=== PATIENT | female | born 1935 | race Caucasian/White ===

== ENCOUNTER → 2023-09-05 13:12 | Outpatient (REF) | payer MEDICARE, BC, SELFPAY | LOC: RAD 13:12 | PROVIDERS: ATTENDING PHYSICIAN Nurse Practitioner Adult Health; FAMILY PHYSICIAN Internal Medicine Geriatric Medicine | DX: K94.23 Gastrostomy malfunction (principal) | CPT/HCPCS: 49465 ==

== ENCOUNTER 2023-11-26 12:24 | Emergency (ER) | payer MEDICARE, BC, SELFPAY ==
[2023-11-26 12:25] VITALS: BP 161/86
[2023-11-26 14:00] VITALS: BP 140/68
--- NOTE | 2023-11-26 14:36 | ED.GENMED ---
History of Present Illness
General
Chief Complaint: Catheter/Tube Problem
Source: patient and spouse
Exam Limitations: none
Time Seen by Provider: 11/26/23 13:58
Nursing documentation reviewed up to this point in time: agreed with
History of Present Illness
History of Present Illness:
88-year-old female past medical history of previous stroke currently with PEG tube in place to the right upper quadrant presenting to the emergency department after PEG tube got dislodged earlier today.
Past History
Past History
ED Past Medical History: CVA and HTN
ED Past Surgical History: Other (G-tube)
Social History
Tobacco: Non-smoker
Alcohol: None
Drug: None
Personal:
Living: with family
Employment: Retired
Review of Systems
Review of Systems
Allergies reviewed?: Yes
All Other Systems: ROS reviewed and negative except as documented in HPI and ROS
Phy Exam
Physical Exam
Physical Exam:
GENERAL: Alert , in no apparent distress
EYE: pupils equal and reactive
NECK: Supple, no significant adenopathy.
ENT: o/p clr, mmm.
CARDIAC: Regular rate and rhythm .
LUNGS: Clear breath sounds bilaterally, no acute respiratory distress, no wheezes/rales/rhonchi
ABDOMEN: Stoma right upper quadrant tenderness no redness or warmth soft, without focal tenderness, no r/g, no cvat
NEUROLOGICAL: Alert no focal neuro deficits
SKIN: Warm and dry, skin intact.
MUSCULOSKELETAL: No edema, well perfused.
PSYCH: Normal and appropriate interaction.
Course
Orders/Labs/Results
Orders:
Orders
11/26/23 14:30
Tube Check [CR Cont Inj Eval Tube(by Rad)] Urgent
Comment:
Reason For Exam: gtube ruq
Vital Signs
Initial and Last Documented VS:
Initial Vital Signs
Temp Pulse Resp BP Pulse Ox
97.9 F 86 18 161/86 97
11/26/23 12:25 11/26/23 12:25 11/26/23 12:25 11/26/23 12:25 11/26/23 12:25
Last Documented Vital Signs
Temp Pulse Resp BP Pulse Ox
97.9 F 66 18 140/68 99
11/26/23 12:25 11/26/23 14:00 11/26/23 14:00 11/26/23 14:00 11/26/23 14:00
Procedures
Other
Indication for procedure:: Gtube dislodged
Procedure completed by: Myself
Consent form signed: No
If no, reason: Emergency procedure
Additional Procedure:
G-tube dislodged replaced with 20 [place] G-tube.
MDM/Problems Addressed
MDM/Problems Addressed:
88-year-old female presenting to the emergency department today with concerns of PEG tube dislodgment earlier today. Has had PEG tube for many years. This was replaced here without incident Gastrografin study confirming placement. Stable for
discharge.
*Critical Care Note
Total Time (30-74mins, 75-104mins- exclusive of procedures): Not Applicable
ED Attending Note
-
Portions of this chart may have been created with voice recognition software.� Occasional wrong word or��sound alike� substitutions may have occurred due to the inherent limitations of voice recognition software.
Discharge Plan
Departure
Patient Disposition: Home (Routine Discharge)
Date of Disposition: 11/26/23
Time of Disposition: 15:10
Patient with high blood pressure during this ER visit?: No
Condition: Good
Covid-19: Not Applicable
Discharge Problem:
Gastrostomy tube dysfunction
Instructions: How to Care for Your Gastrostomy Tube
Prescriptions:
No Action
fexofenadine 180 mg Tablet
180 mg feeding tube DAILY@1200
spironolactone 25 mg Tablet
12.5 mg feeding tube DAILY
aspirin 81 mg Tablet,Chewable
81 mg feeding tube DAILY
clotrimazole 1 % Cream
1 applic TOPICAL PRN PRN (Reason: around tube for rash)
lansoprazole 30 mg tablet,disintegrat, delay rel
30 mg feeding tube BID
Banatrol Plus Powder In Packet
1 ea PO DAILY@1500
Systane (PF) 0.4-0.3 % Dropperette
1 drp BOTH EYES 5/D
olopatadine 0.2 % Drops
1 drp BOTH EYES DAILY
Flonase Sensimist 27.5 mcg/actuation [place],Suspension
1 spray INTRANASAL HS
menthol-zinc oxide [Calmoseptine] 0.44-20.6 % Ointment
1 applic TOPICAL PRN
Eliquis 5 mg Tablet
5 mg feeding tube BID
Melatonin Liquid
20 ml feeding tube HSPRN PRN (Reason: sleep)
acetaminophen 650 mg/20.3 mL Solution
650 mg feeding tube Q4HPRN PRN (Reason: pain/fever) Qty: 0 0RF
miconazole nitrate [Miconazorb AF] 2 % Powder
1 applic topical BID Qty: 85 0RF
Polysporin 500-10,000 unit/gram ointment in packet
1 applic topical DAILY
docusate sodium [Docu] 50 mg/5 mL Liquid
100 mg feeding tube BID PRN (Reason: constipation) 30 Days Qty: 600 0RF
ibuprofen 100 mg/5 mL Suspension
400 mg feeding tube Q4HPRN PRN (Reason: moderate pain) 5 Days Qty: 473 0RF
Referrals:
Judith Garcia MD [Family Provider] -
Activity Restrictions/Additional Instructions:
You can to the emergency department today with concerns of your G-tube falling out. This was replaced please follow-up closely with GI. Return to the emergency department for any worsening, new or concerning symptoms.
Interventions
Interventions:
*Risk Screen - Suicide Last Done: 11/26/23 12:25
*General Assessment Last Done: 11/26/23 12:25
*Neglect/Abuse Screening Last Done: 11/26/23 12:25
*ED COVID-19 Vaccine History Last Done: 11/26/23 12:25
VG-Offbgl-Uvcwxcjnta Assessment Last Done: 11/26/23 13:49
ED-Female Genitourinary Assessment Last Done: 11/26/23 13:49
Discharge Date and Time
Print Language: GEORGIAN
[2023-11-26 15:18] VITALS: BP 135/71
== END 2023-11-26 15:20 | disposition home or self-care (01) ==
LOC: EMR 12:24
PROVIDERS: EMERGENCY PHYSICIAN Emergency Medicine; FAMILY PHYSICIAN Internal Medicine Geriatric Medicine
DX: T85.528A Displacement of other gastrointestinal prosthetic devices, implants and grafts, initial encounter (principal); Y83.8 Other surgical procedures as the cause of abnormal reaction of the patient, or of later complication, without mention of misadventure at the time of the procedure; I10 Essential (primary) hypertension; Z86.73 Personal history of transient ischemic attack (TIA), and cerebral infarction without residual deficits; Z79.01 Long term (current) use of anticoagulants; Z88.8 Allergy status to other drugs, medicaments and biological substances
CPT/HCPCS: 99283; 43762; 49465

== ENCOUNTER → 2023-11-28 09:14 | Outpatient (REF) | payer MEDICARE, BC, SELFPAY | LOC: RST 09:14 | PROVIDERS: ATTENDING PHYSICIAN Internal Medicine Geriatric Medicine | DX: I69.322 Dysarthria following cerebral infarction (principal); R13.10 Dysphagia, unspecified | CPT/HCPCS: 74230; 92611 ==

== ENCOUNTER 2024-02-01 05:04 | Emergency (ER) | payer MEDICARE, BC, SELFPAY ==
[2024-02-01 05:46] VITALS: BP 154/94
[2024-02-01 07:34] VITALS: BP 147/84
[2024-02-01 08:00] VITALS: BP 151/75
[2024-02-01 09:00] VITALS: BP 135/86
--- NOTE | 2024-02-01 10:09 | ED.GENMED ---
History of Present Illness
General
Chief Complaint: Catheter/Tube Problem
Source: patient
Exam Limitations: none
Time Seen by Provider: 02/01/24 07:24
Nursing documentation reviewed up to this point in time: agreed with
History of Present Illness
History of Present Illness:
88-year-old female with past medical history of hypertension hyperlipidemia, stroke presenting to the emergency department today with concerns of dislodgment of her feeding tube that was replaced 2 months ago. Noticed this this morning. Denies any
pain or additional concerns.
Past History
Past History
ED Past Medical History: CVA and HTN
ED Past Surgical History: Other (G-tube)
Social History
Tobacco: Non-smoker
Alcohol: None
Drug: None
Personal:
Living: with family
Employment: Retired
Review of Systems
Review of Systems
Allergies reviewed?: Yes
All Other Systems: ROS reviewed and negative except as documented in HPI and ROS
Phy Exam
Physical Exam
Physical Exam:
GENERAL: Alert , in no apparent distress
EYE: pupils equal and reactive
NECK: Supple, no significant adenopathy.
ENT: o/p clr, mmm.
CARDIAC: Regular rate and rhythm .
LUNGS: Clear breath sounds bilaterally, no acute respiratory distress, no wheezes/rales/rhonchi
ABDOMEN: PEG tube to the mid abdomen partially dislodged no pain no redness or warmth abdomen otherwise soft, without focal tenderness, no r/g, no cvat
NEUROLOGICAL: Alert and oriented, no focal neuro deficits
SKIN: Warm and dry, skin intact.
MUSCULOSKELETAL: No edema, well perfused.
PSYCH: Normal and appropriate interaction.
Course
Orders/Labs/Results
Orders:
Orders
02/01/24 08:52
Tube Check [CR Cont Inj Eval Tube(by Rad)] Urgent
Comment:
Reason For Exam: G tube replaced
Vital Signs
Initial and Last Documented VS:
Initial Vital Signs
Temp Pulse Resp BP Pulse Ox
97.9 F 76 20 154/94 98
02/01/24 05:46 02/01/24 05:46 02/01/24 05:46 02/01/24 05:46 02/01/24 05:46
Last Documented Vital Signs
Temp Pulse Resp BP Pulse Ox
97.9 F 84 16 135/86 98
02/01/24 05:46 02/01/24 07:34 02/01/24 07:34 02/01/24 09:00 02/01/24 09:30
Procedures
Other
Indication for procedure:: G-tube dislodged
Procedure completed by: Myself
Consent form signed: No
If no, reason: Emergency procedure
Additional Procedure:
G-tube placed balloon filled with 15 cc of saline check with Gastrografin study
MDM/Problems Addressed
MDM/Problems Addressed:
88-year-old female presenting to the emergency department with concerns of G-tube falling out this morning. Brought in by the . Otherwise patient appears well no redness or warmth surrounding the area patent and well-established site. New
tube was placed confirmed with Gastrografin otherwise stable for discharge. Of note additionally patient and her were requesting that I discussed this with gastroenterology to see if she needs a different type of tube. This was discussed
with the attending physician with GI who recommended the standard tube to be replaced.
*Critical Care Note
Total Time (30-74mins, 75-104mins- exclusive of procedures): Not Applicable
ED Attending Note
-
Portions of this chart may have been created with voice recognition software.� Occasional wrong word or��sound alike� substitutions may have occurred due to the inherent limitations of voice recognition software.
Discharge Plan
Departure
Patient Disposition: Home (Routine Discharge)
Date of Disposition: 02/01/24
Time of Disposition: 10:09
Patient with high blood pressure during this ER visit?: No
Condition: Good
Covid-19: Not Applicable
Discharge Problem:
Dislodged gastrostomy tube
Instructions: How to Care for Your Gastrostomy Tube
Prescriptions:
No Action
fexofenadine 180 mg Tablet
180 mg feeding tube DAILY@1200
spironolactone 25 mg Tablet
12.5 mg feeding tube DAILY
aspirin 81 mg Tablet,Chewable
81 mg feeding tube DAILY
clotrimazole 1 % Cream
1 applic TOPICAL PRN PRN (Reason: around tube for rash)
lansoprazole 30 mg tablet,disintegrat, delay rel
30 mg feeding tube BID
Banatrol Plus Powder In Packet
1 ea PO DAILY@1500
Systane (PF) 0.4-0.3 % Dropperette
1 drp BOTH EYES 5/D
olopatadine 0.2 % Drops
1 drp BOTH EYES DAILY
Flonase Sensimist 27.5 mcg/actuation [place],Suspension
1 spray INTRANASAL HS
menthol-zinc oxide [Calmoseptine] 0.44-20.6 % Ointment
1 applic TOPICAL PRN
Eliquis 5 mg Tablet
5 mg feeding tube BID
Melatonin Liquid
20 ml feeding tube HSPRN PRN (Reason: sleep)
acetaminophen 650 mg/20.3 mL Solution
650 mg feeding tube Q4HPRN PRN (Reason: pain/fever) Qty: 0 0RF
miconazole nitrate [Miconazorb AF] 2 % Powder
1 applic topical BID Qty: 85 0RF
Polysporin 500-10,000 unit/gram ointment in packet
1 applic topical DAILY
docusate sodium [Docu] 50 mg/5 mL Liquid
100 mg feeding tube BID PRN (Reason: constipation) 30 Days Qty: 600 0RF
ibuprofen 100 mg/5 mL Suspension
400 mg feeding tube Q4HPRN PRN (Reason: moderate pain) 5 Days Qty: 473 0RF
Referrals:
Judith Garcia MD [Family Provider] -
Activity Restrictions/Additional Instructions:
You came to the emergency department today with concerns of dislodged G-tube. This was replaced. Please follow closely with your experience specialist. Return to the emergency department for any worsening, new or concerning symptoms.
Interventions
Interventions:
*Risk Screen - Suicide Last Done: 02/01/24 05:46
*General Assessment Last Done: 02/01/24 05:46
*Neglect/Abuse Screening Last Done: 02/01/24 05:46
ED- Fall Risk Assessment Last Done: 02/01/24 05:46
*ED COVID-19 Vaccine History Last Done: 02/01/24 05:46
*Nursing Disposition Last Done: 02/01/24 10:05
IU-Cxluax-Fqbyrpqkzw Assessment Last Done: 02/01/24 07:34
Discharge Date and Time
Discharge Date/Time: 02/01/24 10:26
Print Language: TAJIK
== END 2024-02-01 10:26 | disposition home or self-care (01) ==
LOC: EMR 05:04
PROVIDERS: EMERGENCY PHYSICIAN Emergency Medicine; FAMILY PHYSICIAN Internal Medicine Geriatric Medicine
DX: Z43.1 Encounter for attention to gastrostomy (principal); I10 Essential (primary) hypertension; E78.00 Pure hypercholesterolemia, unspecified; Z86.73 Personal history of transient ischemic attack (TIA), and cerebral infarction without residual deficits
CPT/HCPCS: 99283; 43762; 49465

== ENCOUNTER → 2024-04-03 13:21 | Outpatient (REF) | payer MEDICARE, BC, SELFPAY | LOC: REG 13:21 | PROVIDERS: ATTENDING PHYSICIAN Nurse Practitioner Adult Health; FAMILY PHYSICIAN Internal Medicine Geriatric Medicine | DX: K94.23 Gastrostomy malfunction (principal) | CPT/HCPCS: 49465 ==

== ENCOUNTER 2024-05-19 08:52 | Emergency (ER) | payer MEDICARE, BC, SELFPAY ==
[2024-05-19 09:10] VITALS: BP 127/67
--- NOTE | 2024-05-19 09:14 | EDRN ---
Unable to get temp at triage, unable to get oral nor axillary.
[2024-05-19 10:18] VITALS: BMI 23.5
[2024-05-19 10:22] VITALS: BP 139/77
--- NOTE | 2024-05-19 10:56 | ED.GENMED ---
History of Present Illness
General
Chief Complaint: Catheter/Tube Problem
Source: patient and spouse
Exam Limitations: none
Time Seen by Provider: 05/19/24 10:19
Nursing documentation reviewed up to this point in time: agreed with
History of Present Illness
History of Present Illness:
88-year-old female past medical history of previous stroke has a chronic G-tube and liver the past 6 years also with previous partial lap gastrectomy. Presenting today with concerns of leaking from her G-tube. Has had difficulty with the G-tube
over the past month with a new type of tube being used. They are requesting replacement with her standard tube that she has gotten here multiple times in the past. Denies additional concerns.
Past History
Past History
ED Past Medical History: CVA and HTN
ED Past Surgical History: Other (G-tube)
Social History
Tobacco: Non-smoker
Alcohol: None
Drug: None
Personal:
Living: with family
Employment: Retired
Review of Systems
Review of Systems
Allergies reviewed?: Yes
All Other Systems: ROS reviewed and negative except as documented in HPI and ROS
Phy Exam
Physical Exam
Physical Exam:
GENERAL: Alert , in no apparent distress
EYE: pupils equal and reactive
NECK: Supple, no significant adenopathy.
ENT: o/p clr, mmm.
CARDIAC: Regular rate and rhythm .
LUNGS: Clear breath sounds bilaterally, no acute respiratory distress, no wheezes/rales/rhonchi
ABDOMEN: No visible abnormalities to the surrounding skin. G-tube in place to the epigastrium. Soft, without focal tenderness, no r/g, no cvat
NEUROLOGICAL: Alert and oriented, no focal neuro deficits
SKIN: Warm and dry, skin intact.
MUSCULOSKELETAL: No edema, well perfused.
PSYCH: Normal and appropriate interaction.
Course
Orders/Labs/Results
Orders:
Orders
05/19/24 11:45
Tube Check [CR Cont Inj Eval Tube(by Rad)] Urgent
Comment:
Reason For Exam: Gtube
Vital Signs
Initial and Last Documented VS:
Initial Vital Signs
Pulse Resp BP Pulse Ox
92 16 127/67 97
05/19/24 09:10 05/19/24 09:10 05/19/24 09:10 05/19/24 09:10
Last Documented Vital Signs
Pulse Resp BP Pulse Ox
91 18 126/64 96
05/19/24 12:45 05/19/24 12:30 05/19/24 12:00 05/19/24 12:45
Procedures
Other
Indication for procedure:: G-tube malfunction
Procedure completed by: Myself
Consent form signed: No
If no, reason: Emergency procedure
Additional Procedure:
G-tube placed and confirmed with x-ray x-ray read by me
MDM/Problems Addressed
MDM/Problems Addressed:
88-year-old female presenting to the emergency department today with concerns of a leaking G-tube worsening over the past month or so since getting a new G-tube. Specifically worsening over the past few days. They are requesting a replacement here
today. This was replaced in the ER without incident. Confirmed with tube check x-ray. Stable for outpatient management return precautions given..
*Critical Care Note
Total Time (30-74mins, 75-104mins- exclusive of procedures): Not Applicable
ED Attending Note
-
Portions of this chart may have been created with voice recognition software.� Occasional wrong word or��sound alike� substitutions may have occurred due to the inherent limitations of voice recognition software.
Discharge Plan
Departure
Patient Disposition: Home (Routine Discharge)
Date of Disposition: 05/19/24
Time of Disposition: 13:14
Patient with high blood pressure during this ER visit?: No
Condition: Good
Covid-19: Not Applicable
Discharge Problem:
Leakage of gastrostomy site
Instructions: How to Care for Your Gastrostomy Tube
Prescriptions:
No Action
fexofenadine 180 mg Tablet
180 mg feeding tube DAILY@1200
spironolactone 25 mg Tablet
12.5 mg feeding tube DAILY
aspirin 81 mg Tablet,Chewable
81 mg feeding tube DAILY
clotrimazole 1 % Cream
1 applic TOPICAL PRN PRN (Reason: around tube for rash)
lansoprazole 30 mg tablet,disintegrat, delay rel
30 mg feeding tube BID
Banatrol Plus Powder In Packet
1 ea PO DAILY@1500
Systane (PF) 0.4-0.3 % Dropperette
1 drp BOTH EYES 5/D
olopatadine 0.2 % Drops
1 drp BOTH EYES DAILY
Flonase Sensimist 27.5 mcg/actuation [place],Suspension
1 spray INTRANASAL HS
menthol-zinc oxide [Calmoseptine] 0.44-20.6 % Ointment
1 applic TOPICAL PRN
Eliquis 5 mg Tablet
5 mg feeding tube BID
Melatonin Liquid
20 ml feeding tube HSPRN PRN (Reason: sleep)
acetaminophen 650 mg/20.3 mL Solution
650 mg feeding tube Q4HPRN PRN (Reason: pain/fever) Qty: 0 0RF
miconazole nitrate [Miconazorb AF] 2 % Powder
1 applic topical BID Qty: 85 0RF
Polysporin 500-10,000 unit/gram ointment in packet
1 applic topical DAILY
docusate sodium [Docu] 50 mg/5 mL Liquid
100 mg feeding tube BID PRN (Reason: constipation) 30 Days Qty: 600 0RF
ibuprofen 100 mg/5 mL Suspension
400 mg feeding tube Q4HPRN PRN (Reason: moderate pain) 5 Days Qty: 473 0RF
Referrals:
Judith Garcia MD [Family Provider] -
Activity Restrictions/Additional Instructions:
You came to the emergency department today with concerns of G-tube issue. This was replaced. Please follow closely with your GI doctor. Return for any worsening, new or concerning symptoms.
Interventions
Interventions:
*Risk Screen - Suicide Last Done: 05/19/24 10:11
*General Assessment Last Done: 05/19/24 10:11
*Neglect/Abuse Screening Last Done: 05/19/24 10:11
*ED COVID-19 Vaccine History Last Done: 05/19/24 10:11
PM-Chtqkw-Ruuhzuihkq Assessment Last Done: 05/19/24 10:11
ED-Female Genitourinary Assessment Last Done: 05/19/24 10:11
Discharge Date and Time
Print Language: HAITIAN
[2024-05-19 11:00] VITALS: BP 129/67
[2024-05-19 12:00] VITALS: BP 126/64
== END 2024-05-19 13:49 | disposition home or self-care (01) ==
LOC: EMR 08:52
PROVIDERS: EMERGENCY PHYSICIAN Student in an Organized Health Care Education/Training Program; FAMILY PHYSICIAN Internal Medicine Geriatric Medicine
DX: K94.23 Gastrostomy malfunction (principal); I10 Essential (primary) hypertension; Z86.73 Personal history of transient ischemic attack (TIA), and cerebral infarction without residual deficits; Z90.3 Acquired absence of stomach [part of]
CPT/HCPCS: 43762; 99283; 49465

== ENCOUNTER → 2024-12-10 13:28 | Outpatient (REF) | payer MEDICARE, BC, SELFPAY | LOC: RAD 13:28 | PROVIDERS: ATTENDING PHYSICIAN Nurse Practitioner Adult Health; FAMILY PHYSICIAN Internal Medicine Geriatric Medicine | DX: Z43.1 Encounter for attention to gastrostomy (principal) | CPT/HCPCS: 49465 ==

== ENCOUNTER 2024-12-24 15:48 | Inpatient (IN) | payer MEDICARE, BC, SELFPAY ==
[2024-12-24] VITALS (10 sets, daily range): BP systolic 97–115; BP diastolic 47–83; BMI 20.9; BMI 23.6
[2024-12-24 10:28] LABS: Hematocrit 39.0 % (37.0-47.0); Hemoglobin 12.6 g/dL (12.0-16.0); Mean Corp Hgb Conc. 32.3 g/dL (33.0-37.0); Mean Corpuscular Volume 96.5 fL (81.0-99.0); Nucleated Red Blood Cells % 0 %; Platelet Count 232 10^3/uL (130-400); Red Cell Dist. Width 14.4 % (11.5-14.5)
[2024-12-24 10:46] LABS: Blood Urea Nitrogen 25 mg/dl (7-17); Calcium 9.4 mg/dl (8.4-10.2); Carbon Dioxide 28 mmol/L (22-30); Chloride 105 mmol/L (98-107); Estimated Creatinine Clearance 47 ml/min; Glucose 98 mg/dl (70-99); Sodium 139 mmol/L (135-145); eGFR > 60.00
[2024-12-24] MEDS: NSS 1000 IV ×2 (10:57→19:17)
--- NOTE | 2024-12-24 13:31 | ED.GENMED ---
History of Present Illness
General
Chief Complaint: Fainting/Passed Out
Source: family
Time Seen by Provider: 12/24/24 11:29
History of Present Illness
History of Present Illness:
89-year-old female had her G-tube replaced a few weeks ago. Has had some drainage around it but this occurred with her previous G-tube. She has been constipated. Today she went to the bathroom and passed out briefly while on the toilet bearing
down. She is at baseline now neurologically. She denies chest pain shortness of breath or abdominal pain. She is always distended per the family.
Past History
Past History
ED Past Medical History: CVA and HTN
ED Past Surgical History: Other (G-tube)
Social History
Tobacco: Non-smoker
Alcohol: None
Drug: None
Personal:
Living: with family
Employment: Retired
Review of Systems
Review of Systems
All Other Systems: Not applicable
Constitutional: Denies fever or chills
Respiratory: Reports no symptoms
Cardiac: Reports no symptoms
Phy Exam
Physical Exam
Physical Exam:
GENERAL: Alert. Follows command. Nonverbal.
EYE: Orbits normal.
NECK: Supple
CARDIAC: Regular rate and rhythm without any obvious murmurs.
LUNGS: Clear breath sounds,normal
ABDOMEN: Distended. Bowel sounds present. G-tube in place. Clear to yellow drainage surrounding the G-tube with mild dermatitis. No tenderness.
NEUROLOGICAL: Alert
SKIN: Warm and dry, no rash or lesion, no discoloration, skin intact.
MUSCULOSKELETAL: No edema,no deformity.Good color
Course
Orders/Labs/Results
Orders:
Orders
12/24/24 10:08
EKG [Electrocardiogram (*1)] Urgent
Reason for Study: Vertigo / Dizzy
EKG- Treatment ONCE
12/24/24 10:14
Basic Metabolic Panel Urgent
Complete Blood Count/With Diff Urgent
Lipase Urgent
12/24/24 10:57
0.9% Sodium Chloride 1000 ml [Nss] 1,000 ml IV BOLUS
12/24/24 11:39
IV Insert/Care/Rem.- Treatment PRN
0.9% Sodium Chloride 500 ml [Nss] 500 ml IV BOLUS
12/24/24 11:42
CT Abd/Pel (IV only)-DH only Urgent
Comment:
Reason For Exam: Abdominal pain/recent G-tube change
12/24/24 11:43
Straight cath- Treatment ONCE
Iohexol [Omnipaque] See Protocol TUBE NOW STA
12/24/24 12:20
Add On- LAB Urgent
Tests Added?: lfts,lipase
12/24/24 12:38
Blood Culture Q30M
YESSY Source: Blood/Venous
Specimen Description:
12/24/24 13:21
Gpfhm-Aukc-Bazncju Routine
Comment: NEEDS TO BE COLLECTED ORIGINAL SPECIMEN HEMOLYZED
Urinalysis Reflex To Culture Urgent
Date Specimen was Collected: 12/24/24
Time Specimen was Collected: 12:23
Urine Microscopic Reflex Cult Urgent
Blood Culture Q30M
YESSY Source: Blood/Venous
Specimen Description:
12/24/24 13:38
Tube Check [CR Cont Inj Eval Tube(by Rad)] Urgent
Comment:
Reason For Exam: Drainage from G-tube
12/24/24 13:40
Piperacillin/Tazo 4.5 Gram [Zosyn] 4.5 gram in 100 ml IV NOW
Abnormal Lab Results
12/24/24 12/24/24
10:14 13:21
WBC 17.6 H 10^3/uL
(4.8-10.8)
RBC 4.04 L 10^6/uL
(4.20-5.40)
MCH 31.2 H pg
(27.0-31.0)
MCHC 32.3 L g/dL
(33.0-37.0)
MPV 12.0 H fL
(7.4-10.4)
Abs Immat Gran (auto) 0.1 H 10^3/uL
(0-0.05)
Absolute Neuts (auto) 13.8 H 10^3/uL
(1.4-6.5)
Absolute Monos (auto) 1.8 H 10^3/uL
(0.1-0.6)
Neutrophils % 78.7 H %
(42.2-75.2)
Lymphocytes % 9.4 L %
(20.5-51.1)
Monocytes % 10.4 H %
(1.7-9.3)
BUN 25 H mg/dl
(7-17)
Urine Ketones 1+ A
(Negative)
Urine Albumin (Reflex) 2+ A
(Neg - Trace)
12/24/24 10:14
12/24/24 10:14
Vital Signs
Initial and Last Documented VS:
Initial Vital Signs
BP
110/47
12/24/24 10:09
Last Documented Vital Signs
Temp Pulse Resp BP Pulse Ox
98.1 F 82 16 110/83 94
12/24/24 10:19 12/24/24 12:54 12/24/24 12:54 12/24/24 12:54 12/24/24 13:36
*Radiology
Radiology exam reviewed: radiology read reviewed (Feeding tube in place. Liquid stool in the colon. Consolidation right lower lobe)
*Pulse Oximetry
SaO2: 94
Oxygen Mode of Delivery: Room air
Patient hypoxic: no
*EKG
Interpreted by ED Provider?: Yes
Interpretation: normal
Comparison EKG: no changes
Heart Rate: 68
Rate: normal
Rhythm: sinus
[place]: left axis deviation
Interval: normal interval
QRS Pattern: normal QRS
Ischemia: no ischemia
*Mill Supervisor Interpretation
Rate: normal
Interpretation: normal
Heart Rate: 70
Rhythm: sinus
*Critical Care Note
Total Time (30-74mins, 75-104mins- exclusive of procedures): Not Applicable
Update Note
Update Note:
Patient with pneumonia. Leukocytosis, hypotension on arrival and syncopal episode. Warrants inpatient management. Will do a Gastrografin check for completeness
ED Attending Note
-
Portions of this chart may have been created with voice recognition software.� Occasional wrong word or��sound alike� substitutions may have occurred due to the inherent limitations of voice recognition software.
Discharge Plan
Departure
Patient Disposition: Admit
Date of Disposition: 12/24/24
Time of Disposition: 13:41
Presentation/result/management discussed w/ accepting MD/DO: Hospitalist
Discharge Problem:
Syncope, Right lower lobe infiltrate, Drainage from G-tube, Previous CVA
Prescriptions:
No Action
fexofenadine 180 mg Tablet
180 mg feeding tube DAILY@1200
aspirin 81 mg Tablet,Chewable
81 mg feeding tube DAILY
clotrimazole 1 % Cream
1 applic TOPICAL PRN PRN (Reason: around tube for rash)
lansoprazole 30 mg tablet,disintegrat, delay rel
30 mg feeding tube BID
Banatrol Plus Powder In Packet
1 ea PO DAILY@1500
Systane (PF) 0.4-0.3 % Dropperette
1 drp BOTH EYES 5/D
olopatadine 0.2 % Drops
1 drp BOTH EYES DAILY
Flonase Sensimist 27.5 mcg/actuation [place],Suspension
1 spray INTRANASAL HS
Eliquis 5 mg Tablet
5 mg feeding tube BID
Melatonin Liquid
20 ml feeding tube HSPRN PRN (Reason: sleep)
acetaminophen 650 mg/20.3 mL Solution
650 mg feeding tube Q4HPRN PRN (Reason: pain/fever) Qty: 0 0RF
docusate sodium [Docu] 50 mg/5 mL Liquid
100 mg feeding tube BID PRN (Reason: constipation) 30 Days Qty: 600 0RF
ibuprofen 100 mg/5 mL Suspension
400 mg feeding tube Q4HPRN PRN (Reason: moderate pain) 5 Days Qty: 473 0RF
glycerin (adult) Suppository
1 supp [place] DAILY PRN (Reason: constipation)
mometasone 0.1 % Solution
1 applic TOPICAL DAILY
Referrals:
Carlos Shields DO [Family Provider, Family Practice]
Interventions
Interventions:
*Risk Screen - Suicide Last Done: 12/24/24 10:19
*General Assessment Last Done: 12/24/24 10:19
*Neglect/Abuse Screening Last Done: 12/24/24 10:19
*ED- Fall Risk Assessment Last Done: 12/24/24 10:19
*ED COVID-19 Vaccine History Last Done: 12/24/24 10:19
ED- Cardiac Assessment Last Done: 12/24/24 10:19
ED- Neurological Assessment Last Done: 12/24/24 10:19
Discharge Date and Time
Print Language: GERMAN
[2024-12-24 13:42] LABS: Urine Character Clear (Clear)
[2024-12-24 13:48] LABS: ALT (SGPT) 29 U/L (0-35); AST (SGOT) 39 U/L (14-36); Albumin 3.4 g/dl (3.5-5.0); Alkaline Phosphatase 73 U/L (38-126); Total Protein 6.4 g/dl (6.3-8.2)
--- NOTE | 2024-12-24 13:52 | HPS.HSE ---
Family Physician
-
Family Physician: Carlos Shields, DO
Chief Complaint
-
Syncope with bowel movement, vomited yellow bile, G-tube malfunction
History of Present Illness
89-year-old female from home complaining of some drainage around her G-tube which was replaced 2 weeks ago. She reports feeling constipated and straining while in the bathroom for which she passed out briefly while on the toilet bearing down. Her
daughters at bedside adding inhaler he states she had her G-tube changed 2 weeks ago with balloon increased from 10 cc to 20 cc and attempt to decrease chronic diarrhea post tube feeds however since then she has had scant amount of her chronic pasty
stool passing giving her a sense of constipation. She also has external hemorrhoids for which external Preparation H has not been helping. Her daughter states today while she was straining on the toilet and passed out she refluxed yellow bile into
her mouth she is unable to swallow her own saliva at baseline since her stroke. CT of her abdomen shows no intestinal obstruction some liquid stool in the colon however shows consolidation in the right lower lobe reflecting possible pneumonia. The
patient and family at bedside deny fever, chills, chest pain, palpitations, cough, nausea, diarrhea, urinary symptoms.
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
bilateral leg lymphedema, chronic ambulatory dysfunction uses walker at baseline past 6 months
Medical History
Past Medical History
Past Medical History: Reports Other
Additional Past Medical History:
CVA 2019 status post thrombectomy with dysphagia/dysarthria requiring PEG tube- chronic drooling left side of mouth
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
HTN
chronic bilateral leg lymphedema
chronic ambulatory dysfunction uses walker at baseline past 6 months
Past Surgical History: Reports Other
Additional Past Surgical History:
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
G-tube placement recent exchange November 2024
Initial G-tube 2019 replacement 2021
Bladder lift with ovarian removal
Social History
Tobacco: Non-smoker
Alcohol: None
Drug: None
Personal:
Living: Alone ([facility])
Employment: Retired
Family History
Family History: Not pertinent
Allergies / Home Medications
Allergies reflects when Allergies were last updated in [facility].
Home Medications with original date entered in [facility]
Allergy/Medication List:
Allergies
Allergy/AdvReac Type Severity Reaction Status Date / Time
atorvastatin (From Lipitor) Allergy diarrhea Verified 05/19/24 09:10
budesonide (From Symbicort) Allergy hoarse Verified 05/19/24 09:10
voice
formoterol (From Symbicort) Allergy hoarse Verified 05/19/24 09:10
voice
lisinopril Allergy COUGH Verified 05/19/24 09:10
losartan Allergy rapid HR Verified 05/19/24 09:10
rofecoxib (From Vioxx) Allergy Swelling Verified 05/19/24 09:10
rosuvastatin (From Crestor) Allergy DIARRHEA Verified 05/19/24 09:10
Home Medications
apixaban 5 mg tablet (Eliquis) 5 mg feeding tube BID Blood clot prevention/tx 03/31/22
aspirin 81 mg chewable tablet 81 mg feeding tube DAILY Blood clot prevention/tx 03/31/22
lansoprazole 15 mg delayed release,disintegrating tablet 15 mg feeding tube DAILY 12/24/24
Review of Systems
-
History Source: Patient and Family (Daughters Lynne and Jenny)
A 12 point ROS was completed and negative except as noted: Yes
Constitutional: Reports Other (Baseline nonverbal from stroke however does communicate via phone texting); Denies Fever or Fatigue
EENT: Reports Other (Chronic show left-sided mouth due to chronic dysphagia from CVA); Denies Sore Throat or Runny Nose
Respiratory: Denies Cough or Trouble Breathing
Cardiac: Denies Chest Pain, Diaphoresis, Palpitations or Syncope
Abdomen/GI: Reports Nausea (Chronic), Constipated and Other (Vomited yellow bile post vasovagal episode); Denies Abdominal Pain
: Denies Dysuria, Frequency, Flank Pain, Incontinence or Difficulty Voiding
Musculoskeletal: Reports Edema (Chronic bilateral leg lymphedema +1 nonpitting); Denies Joint Pain
Skin: Denies Itching or Rash
Neurological: Denies Dizzy, Headache or Weakness
Endocrine: Reports No Symptoms
Hematologic/Lymphatic: Reports No Symptoms
Psych: Reports Calm
Physical Exam
Vital Signs
Vital Signs
Temp Pulse Resp BP Pulse Ox
98.1 F 82 16 110/83 94
12/24/24 10:19 12/24/24 12:54 12/24/24 12:54 12/24/24 12:54 12/24/24 13:36
Physical Exam
General: Comfortable and Conversant
HEENT: NormoCephalic, Anicteric, Moist mucous membranes, PERRLA, [place] Conjunctivae and Other (Baseline nonverbal from stroke however does communicate via phone texting, chronic drool from left side mouth due to chronic dysphagia from prior stroke)
Respiratory: Clear; No Wheezes, Rales or Rhonchi
Cardiac: S1/S2 and Regular Rhythm; No Murmur, Rub or Gallop
Breast: Deferred by me
GI: Soft, Non Tender, Non Distended, Normal Bowel Sounds, Distended (Chronic) and Peg Tube (With chronic excoriation around site due to scant leakage)
Rectal: Hemorrhoids
Genito-urinary: Deferred by me
Musculoskeletal: No Clubbing, No Cyanosis, Edema, Left Lower Extremity (Chronic leg lymphedema +1 nonpitting) and Edema, Right Lower Extremity (Chronic leg lymphedema +1 nonpitting); No Edema, Left Upper Extremity or Edema, Right Upper Extremity
Skin: Warm and Dry; No Rash
Neuro: AO x 3 (Communicates via iPhone), No Motor Deficits, No Sensory Deficits and Other (Chronic left-sided facial droop with drooling, chronic nonverbal due to prior stroke); No Tremors or Sedated
Psych: Calm
Laboratory Results
-
12/24/24 10:14
12/24/24 10:14
Laboratory Results
Total Bilirubin 0.8 mg/dl (0.2-1.3) 12/24/24 13:21
AST 39 U/L (14-36) H 12/24/24 13:21
ALT 29 U/L (0-35) 12/24/24 13:21
Alkaline Phosphatase 73 U/L (38-126) 12/24/24 13:21
Impression/Plan
-
Impression/plan:
Admit to MED SURG
#Right lower lobe pneumonia consider aspiration given G-tube feeds poss g tube malfunction
#Vomited yellow bile post syncope
WBC 17.6 with left shift, afebrile 98.1 F, 110/83,
91�94% RA monitor pulse oximetry
- Follow blood cultures, urinalysis, CBC, CMP
-IV Zosyn
- Check Pro-Jamshid if negative will stop antibiotics
CT abdomen pelvis:
1.Percutaneous feeding tube tip most likely in the duodenum. No gross free fluid or free air.
2. Some liquid stool in the colon. Cannot exclude enteritis. No intestinal obstruction.
3. Although markedly limited by beam hardening artifact, suggested consolidation in the
lower lobe of the right lung such as pneumonia, less likely mass.
#Vasovagal syncope attempted to have bowel movement
Patient reports feeling constipated however no constipation or obstruction on CT
follow orthostatics
#Possible G-tube malfunction/malplacement/ chronic leakage around G-tube site
#Replacement of G-tube 2 weeks ago November 2024 into duodenum
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
-Percutaneous feeding tube placement is in the duodenum per CT
-lansoprazole 30 mg twice daily via G-tube
- Continue banana troll plus daily at 1500 supplement via G-tube
- IV Protonix 40 mg daily
-- Consult GI
-NPO
-IV NSS 40 cc/hr
- Check G-tube placement
- Once G-tube placement confirmed will need consult for tube feeds uses Nutren 2.0 prior bolus 120 mL every 2-3 hours with 60 cc pre and post feeds then 120 cc water with meds 3 times daily
#External hemorrhoids with pain
- Will apply Anusol suppository for relief
#Embolic CVA 2019 s/p thrombectomy with dysphagia/dysarthria
-May continue Eliquis 5 mg twice daily via G-tube ONCE placement confirmed
- MAY Continue aspirin 81 mg daily via G-tube ONCE placement confirmed
#Insomnia
May have melatonin liquid from home 20 mL at bedtime as needed
#Dry eye syndrome
Continue eyedrops
Seasonal allergies
Fexofenadine 180 mg 180 mg daily via G-tube at noon
DVT prophylaxis
SCD' s until placement og gtube confirmed then can resume eliquis
DNR per patient with daughter Jeaneth at bedside
[2024-12-24] MEDS: ZOSYN 100 IV (13:56)
[2024-12-24 14:00] LABS: Urine Squamous Cell 0-2 /LPF (Few)
[2024-12-24 14:01] LABS: Urine Red Blood Cell 0-2 /HPF (0-2); Urine White Cell 0-2 /HPF (0-5)
--- NOTE | 2024-12-24 14:01 | W.PN.UPDATE ---
Update Note
Progress Note Update
This note serves as an addendum to the H&P by driver license agent Thea Gates
HPI
89F with chronic PEG for dysphagia/dysarthria s/p embolic CVA in 2019 seen at ER:
- c/o drainage around her G-tube which was replaced a few weeks ago.
- feeling constipated and straining while in the bathroom for which she passed out briefly while on the toilet bearing down.
- Per family she is at baseline now neurologically.
- has chronic distended abdomen.
AP CT of - no intestinal obstruction some liquid stool in the colon however shows consolidation in the right lower lobe reflecting possible pneumonia.
PMH
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
HTN
Relevant VS
Temp Pulse Resp BP Pulse Ox
98.1 F 82 16 110/83 94
12/24/24 10:19 12/24/24 12:54 12/24/24 12:54 12/24/24 12:54 12/24/24 13:36
PE
Gen:
HEENT:
Neck:
Lungs:
Cor:
Abdomen:�
SUPERVISOR STAVE CUTTING:
MS:
Psych:
Relevant data�
06/19/22 12/24/24 12/24/24
04:39 10:14 13:21
WBC 8.1 17.6 H
Hgb 12.1 12.6
Plt Count 186 232
Creatinine 0.7
eGFR > 60.00
Direct Bilirubin 0.6 H
AST 39 H
Albumin 3.[address] Abd/Pel (IV only)-DH only
- Percutaneous feeding tube tip most likely in the duodenum. No gross free fluid or free air.
- Some liquid stool in the colon. Cannot exclude enteritis. No intestinal obstruction.
- although markedly limited by beam hardening artifact, suggested consolidation in the lower lobe of the right lung such as pneumonia, less likely mass.
12/24/24 Pending Tube check : pending
12/10/24 CR Cont Inj Eval Tube(by Rad)
The percutaneous gastrostomy tube tip is confirmed within the gastric lumen.
Last hospitalist admission: Date of Admission: 03/31/22 - Date of Discharge: 04/11/22
PDX
PEG tube malfunction with leak.
HX CVA (stroke) in 2019 which led to the dysphagia and dysarthria
Essential hypertension.
ASSESSMENT & PLAN
Pending Rx reconciliation
Syncope while straining while defecation
- vasovagal orging
Malfunction PEG tube with leakage around the tract
- Per CT - PEG is in correct position
- Recently increased the ballon capacity ( 10 cc to 20 cc ) 2 weeks ago
- S/P PEG 04/10/22--Gastric fistula-s/p endoscopic repair 04/03
- Tube check for the function
- maintenance Gentle IV NS @40 /H while evaluating TF function
- GI consult
Incidental findings R LLL Consolidation - presumed aspiration
Spitting more since vomiting episodes
- Vomited yesterday
- Leucocytosis
- Afebrile
- check PCT - If NEG can stop ABx
- Empiric Zosyn
HX embolic CVA in 2019 with residauly dysphagia and dysarthria- at [facility].
- on chr Eliquis and ASA
Essential HTN
- Observe BP
DVT Px: IMMIGRATION OFFICER Eliquis
DNR
IP MS
--- NOTE | 2024-12-24 15:32 | CON.GI ---
Addendum entered and electronically signed by Hunter Pack MD 12/24/24 17:10:
The patient was seen and examined by me independently in collaboration with the nurse practitioner.
Past medical history/social history/medications/allergies/family history reviewed.
Lab data and imaging data reviewed.
89-year-old female past medical history of stroke with chronic dysphagia, dysarthria on chronic Eliquis with PEG c/b fistula, buried bumper, failed ovesco s/p partial gastrectomy p/w leakage, underwent CT which showed G tube in the duodenum which
likely led to aspiration PNA and constipation which led to vasovagal syncope while having BM. Briseida Atkins APN fixed PEG tube and G tube check.
Original Note:
Consultation
-
Date/Time Consultation Requested: 12/24/24 1500
Date/Time Consultation Performed: 12/24/24 1530
Requesting Provider: LUCIANO Keen
Performing Provider: LUCIANO Cohen, Vibha Pack MD
Reason for Consultation: peg leakage/ malposition
Medical History
Chief Complaint / HPI
History of Present Illness:
Pt is a 89yo with hx CVA with prior thrombectomy with chronic dysphagia, dysarthria on chronic Eliquis, GERD, HTN, hemorrhoids, pancreatic cyst, constipation/diarrhea , chronic peg with complicated peg issue [id number] with non healing fistula with
likely prior buried bumper, failed ovesco closure then partial gastrectomy for fistula track closure in 2022. She has done well since that time with routine checks, silver nitrate treatments, accidental removal with ER replacement and leakage. She
had routine change 2 weeks ago. Prior to change some bloating and tube was around 8 then 4-5 after replacement. Tube check confirmed placement in stomach on tube check . After placement she was noted with constipation with minimal stools and
taking Miralax. She noted noted 9/2 PM with migration of tube to back to around 10 with increased bloating, leakage then small amount of emesis. She also had episode of passing out of toilet while bearing down. On admission she was noted with
leukocytosis. CT on admission with concern for tube with tip in duodenum liquid stool in colon cannot exclude enteritis and concern for possible PNA. Asked to eval tube.
In review with patient and family noted tube changes as above. Skin around tube was she has hx diarrhea and constipation. She had been off miralax but restarted over last week. She has also had hx hemorrhoids with irritation with straining
for BM. She otherwise admits to chronic GERD and gas with incresae symptoms since yesterday. She denies diarrhea, or black stools.
Past Medical History
Past Medical History: CVA (CVA with prior thrombectomy with chronic dysphagia, dysarthria on chronic Eliquis ), GERD, HTN and Other (allergies, raynauds, hemorrhoids, pancreatic cyst, constipation/diarrhea )
Past Surgical History: Other (chronic peg with hx malpositioned peg and unhealing tract with ovesco clip then gastric fistula repair partial gastrectomy 2022)
Social History
Tobacco: Non-Smoker
Alcohol: None
Drug: None
Personal:
Living: With Family
Employment: Retired
Family History
Family History: Reviewed & Not Pertinent
Allergies / Home Medications
Allergy/AdvReac Type Severity Reaction Status Date / Time
atorvastatin (From Lipitor) Allergy diarrhea Verified 05/19/24 09:10
budesonide (From Symbicort) Allergy hoarse Verified 05/19/24 09:10
voice
formoterol (From Symbicort) Allergy hoarse Verified 05/19/24 09:10
voice
lisinopril Allergy COUGH Verified 05/19/24 09:10
losartan Allergy rapid HR Verified 05/19/24 09:10
rofecoxib (From Vioxx) Allergy Swelling Verified 05/19/24 09:10
rosuvastatin (From Crestor) Allergy DIARRHEA Verified 05/19/24 09:10
�Medication �Instructions �Recorded
apixaban 5 mg tablet (Eliquis) 5 mg feeding tube BID Blood clot 03/31/22
prevention/tx
aspirin 81 mg chewable tablet 81 mg feeding tube DAILY Blood 03/31/22
clot prevention/tx
lansoprazole 15 mg delayed 15 mg feeding tube DAILY 12/24/24
release,disintegrating tablet
Review of Systems
-
History Source: Patient and Family
Constitutional: Reports Weight Loss (some loss with loss of spouse ) and Fatigue
EENT: Reports No Symptoms
Respiratory: Reports No Symptoms
Cardiac: Reports Syncope
Abdomen/GI: Reports Nausea, Vomiting, Constipated and Other (increased GERD and increased leakage around tube )
: Reports No Symptoms
Neurological: Reports Weakness
Endocrine: Reports No Symptoms
Hematologic/Lymphatic: Reports Bleeding (with hemorrhoids at times )
Vital Signs
Temp Pulse Resp BP Pulse Ox
98.1 F 82 16 110/83 94
12/24/24 10:19 12/24/24 12:54 12/24/24 12:54 12/24/24 12:54 12/24/24 13:36
Physical Exam
Exam
General: Other (sleepy but arousable )
HEENT: Normocephalic
Respiratory: Other (decreased )
Cardiac: Regular Rhythm
GI: Soft and Other (peg at around 9 pulled back to 4-5 )
Musculoskeletal: No Clubbing and No Cyanosis
Skin: Warm and Dry
Neuro: Other (sleepy but arousable to voice )
Psych: Calm
Results
WBC 17.6 10^3/uL (4.8-10.8) H 12/24/24 10:14
Hgb 12.6 g/dL (12.0-16.0) 12/24/24 10:14
Hct 39.0 % (37.0-47.0) 12/24/24 10:14
MCV 96.5 fL (81.0-99.0) 12/24/24 10:14
Plt Count 232 10^3/uL (130-400) 12/24/24 10:14
Absolute Neuts (auto) 13.8 10^3/uL (1.4-6.5) H 12/24/24 10:14
Sodium 139 mmol/L (135-145) 12/24/24 10:14
Potassium mmol/L (3.5-5.1) 12/24/24 10:14
Chloride 105 mmol/L (98-107) 12/24/24 10:14
Carbon Dioxide 28 mmol/L (22-30) 12/24/24 10:14
BUN 25 mg/dl (7-17) H 12/24/24 10:14
Creatinine 0.7 mg/dL (0.6-1.0) 12/24/24 10:14
Calcium 9.4 mg/dl (8.4-10.2) 12/24/24 10:14
Total Bilirubin 0.8 mg/dl (0.2-1.3) 12/24/24 13:21
AST 39 U/L (14-36) H 12/24/24 13:21
ALT 29 U/L (0-35) 12/24/24 13:21
Alkaline Phosphatase 73 U/L (38-126) 12/24/24 13:21
Diagnostic Image Results:
12/24 tube check pending to be done
Prior GI Procedures:
EGD: 04/2022- [facility], - Normal esophagus.
- Small hiatal hernia.
- A previously placed OVESCO endoclip was found in the
stomach. Multiple examination maneuvers were performed
around OVESCO clip and no obvious fistula tract was
located. No further intervention was performed.
- The PEG was found in the stomach.
- Normal duodenal bulb, first portion of the duodenum
and second portion of the duodenum.
- No specimens collected.
eGD 04/10/2022- [facility] - Normal esophagus.
- Small hiatal hernia.
- old site with OVESCO intact, no signs of leak
- s/p PEG as described above
- Normal examined duodenum.
- No specimens collected.
EGD 04/03/2022 - Normal esophagus.
- Gastric fistula. APC was performed to traumatize the
fistula, OVESCO successfully deployed.
- Normal duodenal bulb, first portion of the duodenum
and second portion of the duodenum.
- No specimens collected.
Colonoscopy: 2009 last completed
Assessment / Plan
-
Pt is a 89yo with hx CVA with prior thrombectomy with chronic dysphagia, dysarthria on chronic Eliquis, chronic peg with complicated peg issue [id number] with non healing fistula with likely prior buried bumper, failed ovesco closure then partial
gastrectomy for fistula track closure in 2022. She has done well since that time with routine checks, silver nitrate treatments, accidental removal with ER replacement and leakage. She had routine change 2 weeks ago. Prior to change some bloating
and tube was around 8 then 4-5 after replacement. Tube check confirmed placement in stomach on tube check . After placement she was noted with constipation with minimal stools and taking Miralax. She noted noted 9/2 PM with migration of tube to
back to around 10 with increased bloating, leakage then small amount of emesis. She also had episode of passing out of toilet while bearing down. On admission she was noted with leukocytosis. CT on admission with concern for tube with tip in
duodenum liquid stool in colon cannot exclude enteritis and concern for possible PNA. Asked to eval tube. On exam peg with migration and pulled back on 12/24.
-migrated peg tube to duodenum with obstruction of balloon in small bowel
-hx complicated peg with [id number] with non healing fistula with likely prior buried bumper, failed ovesco closure then partial gastrectomy for fistula track closure in 2022
-concern for aspiration PNA
-syncope with straining prior to admission
-leukocytosis
-hx CVA with chronic dysphagia, dysarthria on Eliquis
-constipation with hx diarrhea and constipation
-hemorrhoid with irritation
other med problems:
-GERD
-HTN
- pancreatic cyst,-stable on last imaging
PLAN:
Concern for migration of peg last PM leading to SB obstruction with balloon, leakage, aspiration
tube pulled back to 4 and only left 15 ml in balloon - await tube check to confirm placement back in stomach
discussed with patient and family option of continued G tube feed with close monitoring to tube for migration with risk of aspiration, change to continuous feeds or night feed vs change to G/J tube with IR management
pt/family wish to think about it and discuss again when pt more awake
cont NPO tonight to allow tube site to heal and change pad every 1-2 hours as needed
in am start miralax daily when tube placement confirmed
cont PPI daily
anusol PRN for hemorrhoids
cont abx for PNA
ok for GI standpoint to continue Eliquis once tube check confirmed
family updated at bedside
-
-
Thank you for consultation and allowing me to participate in the patient's care. Please call the gauge controller GI physician during the after hours with any questions or concerns.
[2024-12-24] MEDS: PROTONIX IV 40 MG IV (15:38)
[2024-12-24] MEDS: NSS (PRESERVATIVE FREE) 10 ML IV (15:38)
[2024-12-24 16:37] LABS: Lipase 346 U/L (23-300)
[2024-12-24 19:56] LABS: Procalcitonin 0.18 ng/ml (0.0-0.25)
[2024-12-24] MEDS: OFIRMEV 100 IV (20:00)
[2024-12-24] MEDS: ZOSYN 50 IV (22:44)
[2024-12-24] MEDS: ANUSOL HC 25 MG RECTAL (22:45)
[2024-12-24] MEDS: REFRESH CELLUVISC GEL 1 DROPS BOTH EYES (23:50)
[2024-12-25] MEDS: ZOSYN 50 IV ×4 (04:50→21:58)
[2024-12-25 06:00] VITALS: BMI 23.7
[2024-12-25 06:40] LABS: Hematocrit 32.6 % (37.0-47.0); Hemoglobin 10.9 g/dL (12.0-16.0); Mean Corp Hgb Conc. 33.4 g/dL (33.0-37.0); Mean Corpuscular Volume 93.7 fL (81.0-99.0); Platelet Count 177 10^3/uL (130-400); Red Cell Dist. Width 14.3 % (11.5-14.5)
[2024-12-25 07:00] VITALS: BP 113/64
[2024-12-25 07:41] LABS: ALT (SGPT) 30 U/L (0-35); AST (SGOT) 34 U/L (14-36); Albumin 2.9 g/dl (3.5-5.0); Alkaline Phosphatase 65 U/L (38-126); Blood Urea Nitrogen 19 mg/dl (7-17); Calcium 7.8 mg/dl (8.4-10.2); Carbon Dioxide 26 mmol/L (22-30); Chloride 109 mmol/L (98-107); Estimated Creatinine Clearance 45 ml/min; Glucose 104 mg/dl (70-99); Potassium 3.5 mmol/L (3.5-5.1); Sodium 137 mmol/L (135-145); Total Protein 5.6 g/dl (6.3-8.2); eGFR > 60.00
[2024-12-25 07:48] LABS: Nucleated Red Blood Cells % 0 %
[2024-12-25] MEDS: PROTONIX IV 40 MG IV (08:48)
[2024-12-25] MEDS: NSS (PRESERVATIVE FREE) 10 ML IV (08:49)
--- NOTE | 2024-12-25 10:01 | W.PN.HOSP.TC ---
Today's Communication/Plan
-
See plan
Assessment / Plan
Assessment / Plan
Impression
Presentation with migrated PEG tube complicated with intestinal/duodenal obstruction by balloon.
Aspiration pneumonia
Conditions prior to admission
History of embolic CVA complicated with chronic dysphagia, dysarthria.
Anticoagulation with Eliquis (no documented arrhythmia)
GERD
Essential hypertension
Plan
Migrated back causing duodenal obstruction by balloon.
History of complicated back 2021 2022 with nonhealing fistula, failed ovesco closure then partial gastrectomy for fistula track closure in [address] abdomen pelvis on admission confirming PEG tube in duodenum. No gross free fluid or free air.
Back pulled back
Follow-up tube placement confirms tip in the gastric lumen.
Initiate tube feeds per GI
Bowel regimen
PPI
Aspiration pneumonia.
Likely developed in the settings of intestinal obstruction and persistent nausea and emesis
Stable respiratory status.
Noted with elevated white count and normal procalcitonin but
CT scan with noticeable right lower lobe infiltrate.
Maintain Zosyn with plan to narrow antibiotics over the next 24 hours pending blood cultures
Follow CBC
Aspiration precautions
Embolic CVA.
Stable neurologic status.
Resume Eliquis with tube feeds
Anticipated Discharge: 24 - 48 hours
Subjective/Interval History
-
Date of Service: December 25, 2024
Objective Data
-
Labs:
Laboratory Results
12/25/24
05:59
WBC 10.0
Hgb 10.9 L
Hct 32.6 L
Plt Count 177 D
Sodium 137
Potassium 3.5
Chloride 109 H
Carbon Dioxide 26
BUN 19 H
Creatinine 0.6
Glucose 104 H
Calcium 7.8 L D
Total Bilirubin 1.1
AST 34
ALT 30
Alkaline Phosphatase 65
Vital Signs:
Vital Signs
Temp Pulse Resp BP Pulse Ox
97.4 F 74 17 113/64 98
12/25/24 07:00 12/25/24 07:00 12/25/24 07:00 12/25/24 07:00 12/25/24 07:00
I&O
12/24/24 12/25/24 12/26/24
06:59 06:59 06:59
Intake Total 100 / 100
Balance 100 / 100
Physical Exam
-
General: Well Developed and No Apparent Distress
HEENT: Normocephalic, Atraumatic and Moist Mucous Membranes
Respiratory: Clear to Auscultation
Cardiac: Regular Rhythm and S1/S2; Negative Murmur, Rub or Gallop
GI: Soft, Nontender, Nondistended, Normal Bowel Sounds and Peg Tube; Negative Organomegaly
Rectal: Deferred by Provider
Musculoskeletal: No Clubbing, No Cyanosis and No Edema
Skin: Negative Rash
Neuro: Awake, Alert and Slurred Speech
[2024-12-25 11:03] VITALS: BMI 23.7
--- NOTE | 2024-12-25 12:48 | W.PN.GI.CBS2 ---
Addendum entered and electronically signed by LUCIANO Jiménez 12/25/24 13:28:
correction to below peg migration 9/2 PM with repositioning 12/24 and stable on follow up tube check
cont aspiration precautions and discussed precautions for home with night feeds
Original Note:
Today's Communication / Plan
-
Concern for migration of peg last PM leading to SB obstruction with balloon, leakage, aspiration
tube pulled back to 4 and only left 15 ml in balloon= tube check after change with tube in stomach
pt doing better today -- WBC normalized
peg no drainage and skin improving
reviewed options again with GT with less in balloon, bolus, cont feeds vs G/J tube with risk/benefit of each tube
at this time leaning towards cont GT with 15ml lower balloons ( slight higher risk of falling out and still migration risk) but trial of night feeds with some bolus during the day
medical lab scientist will come back tomorrow to claify goal
will start low dose feeds and advance today
cont abx for PNA
add miralax daily
cont anusol for hemorrhoids
cont Protonix daily- then home regiment on discharge
ok for GI standpoint to continue Eliquis once tube check confirmed
family updated at bedside
Assessment / Plan
-
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
gastrectomy for fistula track closure in 2022. She has done well since that time with routine checks, silver nitrate treatments, accidental removal with ER replacement and leakage. She had routine change 2 weeks ago. Prior to change some bloating
and tube was around 8 then 4-5 after replacement. Tube check confirmed placement in stomach on tube check . After placement she was noted with constipation with minimal stools and taking Miralax. She noted noted 9/2 PM with migration of tube to
back to around 10 with increased bloating, leakage then small amount of emesis. She also had episode of passing out of toilet while bearing down. On admission she was noted with leukocytosis. CT on admission with concern for tube with tip in
duodenum liquid stool in colon cannot exclude enteritis and concern for possible PNA. Asked to eval tube. On exam peg with migration and pulled back on 12/24.
12/24 tube check with tube in gastric lumen
-migrated peg tube to duodenum with obstruction of balloon in small bowel
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
-concern for aspiration PNA
-syncope with straining prior to admission
-leukocytosis
-hx CVA with chronic dysphagia, dysarthria on Eliquis
-constipation with hx diarrhea and constipation
-hemorrhoid with irritation
other med problems:
-GERD
-HTN
- pancreatic cyst,-stable on last imaging
PLAN:
Concern for migration of peg last PM leading to SB obstruction with balloon, leakage, aspiration
tube pulled back to 4 and only left 15 ml in balloon= tube check after change with tube in stomach
pt doing better today -- WBC normalized
peg no drainage and skin improving
reviewed options again with GT with less in balloon, bolus, cont feeds vs G/J tube with risk/benefit of each tube
at this time leaning towards cont GT with 15ml lower balloons ( slight higher risk of falling out and still migration risk) but trial of night feeds with some bolus during the day
medical lab scientist will come back tomorrow to claify goal
will start low dose feeds and advance today
cont abx for PNA
add miralax daily
cont anusol for hemorrhoids
cont Protonix daily- then home regiment on discharge
ok for GI standpoint to continue Eliquis once tube check confirmed
family updated at bedside
Subjective
Subjective
Date of Service: December 25, 2024
feeling better, no stools, NPO
Objective
Data Reviewed
Laboratory Data:
Laboratory Results
12/25/24 05:59
12/25/24 05:59
Laboratory Results
Total Bilirubin 1.1 mg/dl (0.2-1.3) 12/25/24 05:59
AST 34 U/L (14-36) 12/25/24 05:59
ALT 30 U/L (0-35) 12/25/24 05:59
Alkaline Phosphatase 65 U/L (38-126) 12/25/24 05:59
Lipase 346 U/L (23-300) H 12/24/24 13:21
Vital Signs and I&O:
Vital Signs
Temp Pulse Resp BP Pulse Ox
97.4 F 74 17 113/64 98
12/25/24 07:00 12/25/24 07:00 12/25/24 07:00 12/25/24 07:00 12/25/24 07:00
I&O
12/24/24 12/25/24 12/26/24
06:59 06:59 06:59
Intake Total 100 / 100
Balance 100 / 100
Physical Exam
Physical Exam
HEENT: Anicteric and Moist mucous membranes
Cardiology: Normal Sinus Rhythm
Pulmonary: Clear
GI: Soft, Distended (mild), Non Tender and Other (peg at 4 skin around improving still some redness)
Extremities: Edema (chronic)
Neuro: Non Focal (more awake and alert today)
[2024-12-25] MEDS: MIRALAX 17 GRAMS TUBE (14:29)
[2024-12-25 15:00] VITALS: BP 116/61
[2024-12-25] MEDS: NSS 1000 IV (16:10)
[2024-12-25] MEDS: DESENEX/MITRAZOL/ZEASORB 1 APPLIC TOPICAL (21:58)
[2024-12-25] MEDS: ANUSOL HC 25 MG RECTAL (21:58)
[2024-12-25] MEDS: REFRESH CELLUVISC GEL 1 DROPS BOTH EYES (21:58)
[2024-12-25 23:12] VITALS: BP 143/63
[2024-12-26] MEDS: ZOSYN 50 IV ×2 (03:52→09:33)
[2024-12-26 06:00] VITALS: BMI 23.6
[2024-12-26 06:12] LABS: Hematocrit 34.3 % (37.0-47.0); Hemoglobin 11.2 g/dL (12.0-16.0); Mean Corp Hgb Conc. 32.7 g/dL (33.0-37.0); Mean Corpuscular Volume 94.5 fL (81.0-99.0); Nucleated Red Blood Cells % 0 %; Platelet Count 200 10^3/uL (130-400); Red Cell Dist. Width 14.3 % (11.5-14.5)
[2024-12-26 06:39] LABS: ALT (SGPT) 23 U/L (0-35); AST (SGOT) 23 U/L (14-36); Albumin 2.9 g/dl (3.5-5.0); Alkaline Phosphatase 77 U/L (38-126); Blood Urea Nitrogen 17 mg/dl (7-17); Calcium 8.1 mg/dl (8.4-10.2); Carbon Dioxide 26 mmol/L (22-30); Chloride 109 mmol/L (98-107); Estimated Creatinine Clearance 45 ml/min; Glucose 124 mg/dl (70-99); Potassium 3.3 mmol/L (3.5-5.1); Sodium 138 mmol/L (135-145); Total Protein 5.8 g/dl (6.3-8.2); eGFR > 60.00
[2024-12-26 07:51] VITALS: BP 128/67
--- NOTE | 2024-12-26 08:53 | CM ---
Addendum entered by Maira Lopez 12/26/24 15:28:
IMM explained & signed
Addendum entered by Maira Lopez 12/26/24 15:25:
Patient stable for discharge today
VN liaison aware & Raine from [facility] notified - equipment to be delivered tomorrow
per GI note will cont bolus feeds with close watch until pump arrives
PLAN: Home with [facility], tube feeds
daughters to transport
Addendum entered by Maira Lopez 12/26/24 13:33:
Faxed tube feed script to Raine at [facility] - received script
Addendum entered by Maira Lopez 12/26/24 11:31:
CM consult completed for night feeds
spoke with daughters await rec from dietary for script to be faxed to [facility]
declined hospital bed states has a wedge at home.
PLAN: home with [facility] when stable, tube feeds
Original Note:
Patient was seen at bedside yesterday with daughters Lynne & Erikiary
IA completed
dx: tube malfx
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
per patient's daughter has been on tube feeds approx 7 yrs after stroke, patient non-verbal, but uses texts
Patient is current with [facility] ([facility]) for supplies - spoke with Raine at [facility] & faxed clinicals [phone]
will need to fax script for tube feeds once dietary gives recs
Patient lives at [facility] [place] alone, daughter now staying with patient.
Both daughters supportive
patient passed in June
discussed VN - they would like VN-notified liaison
PLOF: Independent with walker
DME: Walker, wheelchair, shower chair
PCP: Dr. Judith Garcia/Dr. Carlos Shields at [facility]
Pharmacy: [facility], [id number]
PLAN: anticipate home with [facility], tube feeds
[2024-12-26] MEDS: MIRALAX TUBE (09:12)
[2024-12-26] MEDS: DESENEX/MITRAZOL/ZEASORB 1 APPLIC TOPICAL (09:13)
[2024-12-26] MEDS: NSS (PRESERVATIVE FREE) 10 ML IV (09:14)
[2024-12-26] MEDS: PROTONIX IV 40 MG IV (09:14)
--- NOTE | 2024-12-26 11:26 | VNURNOTE ---
Addendum entered by Judith Gilliam RN 12/26/24 13:02:
Confirmed with PERINATAL TECHNICIAN Briseida Atkins that pt ok to go home w/ bolus TF (as prior to admission) before new equip in home. Ok'ed for VN to see in home after equip arrives for nocturnal pump teaching. [facility] Intake and supervisors updated.
Original Note:
Home Health Liaison met with patient and 2 daughters at bedside to discuss PM-VN nurse/therapy, visits, schedule and homebound status. Patient is agreeable and understands that visits at home will be 2-3 x per week to assess and teach medical/
tube feed management.
Patient is aware that [facility] will contact them for start of care after discharge from . Provided contact number for PM-VN.
Patient has managed PEG tube and bolus feedings x past 7 years. Family requesting to change to nocturnal feeds via pump. She has been followed as an outpt by MILLIE Atkins NP. Would need VN teaching on pump set up. Explained that typically, VN
sees at home the same day as discharge. The patient would need to be DC'ed before 1200 and equip delivered to house by 1300.
Daughters asked, when medically cleared for DC, if pt can go home prior to TF equip delivery. They state that they can give boluses until new equip (pump) delivered. Dr to determine if this is a safe plan.
Patient has [employer] connector.
Offered to coordinate hospital bed ordering. Patient and daughters declining hosp bed, stating pt has a wedge pillow that elevates HOB > 30 at home. She also has a recliner at home. CM updated on above.
PM [facility] referral completed in [facility]. [facility] to follow for final DC orders/plan
--- NOTE | 2024-12-26 12:04 | W.PN.GI.CBS2 ---
Today's Communication / Plan
-
Concern for migration of peg last PM leading to SB obstruction with balloon, leakage, aspiration
peg remains at 4 with some drainage but no further migration
tolerating tube feeds
replete K per hospitalist
new order for tube feeds reviewed with academic services professional and given to case management
Nutren 2.0 tube feed regiment -- night feeds at 60ml x 8 hours with 50ml/flush per hour, then 2 feeds of 125ml with 50ml/hr over 1 hours each during then day. Will need additional 400ml free water with medications.
cont abx for PNA
discussed miralax to use PRN at home
cont anusol for hemorrhoids
cont Protonix daily- then home regiment on discharge
ok for Eliquis from GI standpoint
family updated at bedside
stable for discharge from GI standpoint
family and pt wisht to go home today and will cont bolus feeds with close watch til pump arrives
Assessment / Plan
-
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
gastrectomy for fistula track closure in 2022. She has done well since that time with routine checks, silver nitrate treatments, accidental removal with ER replacement and leakage. She had routine change 2 weeks ago. Prior to change some bloating
and tube was around 8 then 4-5 after replacement. Tube check confirmed placement in stomach on tube check . After placement she was noted with constipation with minimal stools and taking Miralax. She noted noted 9/2 PM with migration of tube to
back to around 10 with increased bloating, leakage then small amount of emesis. She also had episode of passing out of toilet while bearing down. On admission she was noted with leukocytosis. CT on admission with concern for tube with tip in
duodenum liquid stool in colon cannot exclude enteritis and concern for possible PNA. Asked to eval tube. On exam peg with migration and pulled back on 12/24.
12/24 tube check with tube in gastric lumen
-migrated peg tube to duodenum with obstruction of balloon in small bowel
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
-concern for aspiration PNA
-syncope with straining prior to admission
-leukocytosis
-hx CVA with chronic dysphagia, dysarthria on Eliquis
-constipation with hx diarrhea and constipation
-hemorrhoid with irritation
other med problems:
-GERD
-HTN
- pancreatic cyst,-stable on last imaging
PLAN:
Concern for migration of peg last PM leading to SB obstruction with balloon, leakage, aspiration
peg remains at 4 with some drainage but no further migration
tolerating tube feeds
replete K per hospitalist
new order for tube feeds reviewed with academic services professional and given to case management
Nutren 2.0 tube feed regiment -- night feeds at 60ml x 8 hours with 50ml/flush per hour, then 2 feeds of 125ml with 50ml/hr over 1 hours each during then day. Will need additional 400ml free water with medications.
cont abx for PNA
discussed miralax to use PRN at home
cont anusol for hemorrhoids
cont Protonix daily- then home regiment on discharge
ok for Eliquis from GI standpoint
family updated at bedside
stable for discharge from GI standpoint
family and pt wisht to go home today and will cont bolus feeds with close watch til pump arrives
Subjective
Subjective
Date of Service: December 26, 2024
12/26 stool tolerating tube feeds still some small amount of drainage around tube
Objective
Data Reviewed
Laboratory Data:
Laboratory Results
12/26/24 05:49
12/26/24 05:49
Laboratory Results
Total Bilirubin 0.9 mg/dl (0.2-1.3) 12/26/24 05:49
AST 23 U/L (14-36) 12/26/24 05:49
ALT 23 U/L (0-35) 12/26/24 05:49
Alkaline Phosphatase 77 U/L (38-126) 12/26/24 05:49
Lipase 346 U/L (23-300) H 12/24/24 13:21
Vital Signs and I&O:
Vital Signs
Temp Pulse Resp BP Pulse Ox
98.1 F 78 17 128/67 92
12/26/24 07:51 12/26/24 07:51 12/26/24 07:51 12/26/24 07:51 12/26/24 07:51
I&O
12/25/24 12/26/24 12/27/24
06:59 06:59 06:59
Intake Total 100 / 100 534 / 534
Balance 100 / 100 534 / 534
Physical Exam
Physical Exam
HEENT: Anicteric and Moist mucous membranes
Cardiology: Normal Sinus Rhythm
Pulmonary: Clear
GI: Soft, Distended (mild chronic ) and Other (peg intact with some drainage on gauze, still some redness around tube )
Extremities: Edema
Neuro: Other (chronic dysphagia, chronic aphasia with use of phone for communications)
[2024-12-26] MEDS: ELIQUIS 5 MG TUBE (13:26)
[2024-12-26] MEDS: AUGMENTIN 875 MG/125 MG 1 TABLET TUBE (13:26)
[2024-12-26] MEDS: KCL ELIXIR 40 MEQ TUBE (13:26)
--- NOTE | 2024-12-26 15:00 | W.DS.TRANS ---
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
-
Discharge Instructions:
Discharge Diagnosis/Procedures Impression
Presentation with migrated PEG tube complicated
with intestinal/duodenal obstruction by balloon.
Aspiration pneumonia
Conditions prior to admission
History of embolic CVA complicated with chronic
dysphagia, dysarthria.
Anticoagulation with Eliquis (no documented
arrhythmia)
GERD
Essential hypertension
Diet Tube feeding
Additional Diets Nutren 2.0 tube feed regiment -- night feeds
at 60ml x 8 hours with 50ml/flush per hour, then
2 feeds of 125ml with 50ml/hr over 1 hours each
during then day. Will need additional 400ml
free water with medications.
Wound Care change split gauze every hour as needed if wet.
Use Calmiseptine to site as needed for redness
Instructions:
Stand-Alone Forms:
Changes to Home Medications: Yes
Discharge Medications:
DC Medications w/original date entered in [facility]
apixaban 5 mg tablet (Eliquis) 5 mg feeding tube BID Blood clot prevention/tx 03/31/22
aspirin 81 mg chewable tablet 81 mg feeding tube DAILY Blood clot prevention/tx 03/31/22
lansoprazole 15 mg delayed release,disintegrating tablet 15 mg feeding tube DAILY 12/24/24
olopatadine 0.2 % eye drops (Pataday Once Daily Relief) 1 drp ophthalmic (eye) HS 12/24/24
amoxicillin 875 mg-potassium clavulanate 125 mg tablet 1 tab feeding tube Q12 #14 tabs 12/26/24
hydrocortisone acetate 25 mg rectal suppository 25 mg ND HS #12 ea 12/26/24
polyethylene glycol 3350 17 gram oral powder packet 17 g feeding tube DAILY #30 ea 12/26/24
Home Medication Changes
Antibiotics
Pending Results: No
[2024-12-26 16:22] VITALS: BP 126/73
--- NOTE | 2024-12-28 14:52 | W.PN.UPDATE ---
Update Note
Progress Note Update
Addendum
Received results of blood culture from Lab 12/28
Notified daughter Lynne Rosen to bring pt back to the ER to get admitted to rule out bacteremia. Daughter reported pt stable but still weak.
Notified Dr Marcus / Admitting doctor/ ER doctor.
End
== END 2024-12-26 18:09 | disposition home health service (06) | DRG 393 ==
LOC: 3 WEST ACU 15:48
PROVIDERS: Clinical Nurse Specialist Family Health; ADMITTING PHYSICIAN Internal Medicine; ATTENDING PHYSICIAN Internal Medicine; CONSULT PHYSICIAN Internal Medicine Gastroenterology; EMERGENCY PHYSICIAN Emergency Medicine; FAMILY PHYSICIAN Student in an Organized Health Care Education/Training Program
DX: K94.23 Gastrostomy malfunction (principal); J69.0 Pneumonitis due to inhalation of food and vomit; K31.5 Obstruction of duodenum; K86.2 Cyst of pancreas; Z86.73 Personal history of transient ischemic attack (TIA), and cerebral infarction without residual deficits; K21.9 Gastro-esophageal reflux disease without esophagitis; I10 Essential (primary) hypertension; K64.4 Residual hemorrhoidal skin tags; I89.0 Lymphedema, not elsewhere classified; G47.00 Insomnia, unspecified; H04.129 Dry eye syndrome of unspecified lacrimal gland; I73.00 Raynaud's syndrome without gangrene; Z66 Do not resuscitate; Z79.01 Long term (current) use of anticoagulants; Z79.82 Long term (current) use of aspirin; Z79.899 Other long term (current) drug therapy; Z88.8 Allergy status to other drugs, medicaments and biological substances; Z90.3 Acquired absence of stomach [part of]
CPT/HCPCS: 49465; 74177; 80048; 80053; 80076; 81003; 81015; 83690; 84145; 85025; 87040; 87154; 87205; 93005; 96365; 96375; 99285; Q9967

== ENCOUNTER 2024-12-28 20:25 | Observation (INO) | payer MEDICARE, BC, SELFPAY ==
[2024-12-28] VITALS (8 sets, daily range): BP systolic 117–154; BP diastolic 63–94; BMI 23.3; BMI 23.8
[2024-12-28 16:18] LABS: Hematocrit 39.4 % (37.0-47.0); Hemoglobin 13.2 g/dL (12.0-16.0); Mean Corp Hgb Conc. 33.5 g/dL (33.0-37.0); Mean Corpuscular Volume 94.9 fL (81.0-99.0); Nucleated Red Blood Cells % 0 %; Platelet Count 275 10^3/uL (130-400); Red Cell Dist. Width 14.2 % (11.5-14.5)
[2024-12-28 16:30] LABS: INR 1.33; PT 16.8 Sec (11.4-14.6)
[2024-12-28 16:38] LABS: ALT (SGPT) 21 U/L (0-35); AST (SGOT) 22 U/L (14-36); Albumin 3.6 g/dl (3.5-5.0); Alkaline Phosphatase 79 U/L (38-126); Blood Urea Nitrogen 20 mg/dl (7-17); Calcium 9.1 mg/dl (8.4-10.2); Carbon Dioxide 25 mmol/L (22-30); Chloride 108 mmol/L (98-107); Glucose 92 mg/dl (70-99); Potassium 4.2 mmol/L (3.5-5.1); Sodium 140 mmol/L (135-145); Total Protein 6.9 g/dl (6.3-8.2); eGFR > 60.00
--- NOTE | 2024-12-28 17:33 | ED.GENMED ---
History of Present Illness
General
Chief Complaint: Abnormal Lab Value
Source: patient
Exam Limitations: none
Time Seen by Provider: 12/28/24 16:47
Nursing documentation reviewed up to this point in time: agreed with
History of Present Illness
History of Present Illness:
89-year-old female with past medical history of previous stroke with expressive aphasia has gastrostomy tube in place hypertension hyperlipidemia presented back to the ER today after having positive blood cultures. She claims that she has felt
better since discharge denies any specific symptoms at this point other than slight fatigue.
Past History
Past History
ED Past Medical History: CVA and HTN
ED Past Surgical History: Other (G-tube)
Social History
Tobacco: Non-smoker
Alcohol: None
Drug: None
Personal:
Living: with family
Employment: Retired
Review of Systems
Review of Systems
Allergies reviewed?: Yes
All Other Systems: ROS reviewed and negative except as documented in HPI and ROS
Phy Exam
Physical Exam
Physical Exam:
GENERAL: Alert , in no apparent distress
EYE: pupils equal and reactive
NECK: Supple, no significant adenopathy.
ENT: o/p clr, mmm.
CARDIAC: Regular rate and rhythm .
LUNGS: Clear breath sounds bilaterally, no acute respiratory distress, no wheezes/rales/rhonchi
ABDOMEN: Gastrostomy tube in place soft, without focal tenderness, no r/g, no cvat
NEUROLOGICAL: Alert and oriented, no focal neuro deficits
SKIN: Warm and dry, skin intact.
MUSCULOSKELETAL: No edema, well perfused.
PSYCH: Patient is unable to speak but this is her baseline. Patient writing on a iPad type device to communicate
Course
Orders/Labs/Results
Orders:
Orders
12/28/24 16:00
Blood Culture Q20M
YESSY Source: Blood/Venous
Specimen Description:
Comment: Urgent from separate sites. If patient screens positive for possible sepsis
12/28/24 16:06
Complete Blood Count/With Diff Urgent
Comprehensive Metabolic Panel Urgent
Lactic Acid Q4H
Comment: ON ICE, CANCEL 2ND ORDER IF FIRST LACTIC ACID LEVEL <2
Prothrombin Time Urgent
12/28/24 16:09
Blood Culture Q20M
YESSY Source: Blood/Venous
Specimen Description:
Comment: Urgent from separate sites. If patient screens positive for possible sepsis
12/28/24 17:53
Piperacillin/Tazo 4.5 Gram [Zosyn] 4.5 gram in 100 ml IV NOW
Abnormal Lab Results
12/28/24
16:06
RBC 4.15 L 10^6/uL
(4.20-5.40)
MCH 31.8 H pg
(27.0-31.0)
MPV 11.6 H fL
(7.4-10.4)
Absolute Monos (auto) 1.0 H 10^3/uL
(0.1-0.6)
Absolute Eos (auto) 0.8 H 10^3/uL
(0-0.7)
Immature Gran % 0.6 H %
(0-0.5)
Monocytes % 14.5 H %
(1.7-9.3)
Eosinophils % 11.5 H %
(0-6)
PT 16.8 H Sec
(11.4-14.6)
Chloride 108 H mmol/L
(98-107)
BUN 20 H mg/dl
(7-17)
12/28/24 16:06
12/28/24 16:06
Vital Signs
Initial and Last Documented VS:
Initial Vital Signs
Temp Pulse Resp BP Pulse Ox
98.2 F 82 17 124/74 96
12/28/24 15:52 12/28/24 15:52 12/28/24 15:52 12/28/24 15:52 12/28/24 15:52
Last Documented Vital Signs
Temp Pulse Resp BP Pulse Ox
98.2 F 82 17 124/74 99
12/28/24 15:52 12/28/24 15:52 12/28/24 15:52 12/28/24 15:52 12/28/24 17:36
MDM/Problems Addressed
MDM/Problems Addressed:
89-year-old female presenting after being told to return due to positive blood cultures. Patient claims that symptoms have improved since discharge he has some slight fatigue but denies any significant fever abdominal pain nausea vomiting or any
specific symptoms. Case was discussed with ID and recommended if giving IV antibiotics to give Zosyn this point based upon preliminary blood culture results.
*Pulse Oximetry
SaO2: 99
Oxygen Mode of Delivery: Room air
Patient hypoxic: no (99)
*Critical Care Note
Total Time (30-74mins, 75-104mins- exclusive of procedures): Not Applicable
ED Attending Note
-
Portions of this chart may have been created with voice recognition software.� Occasional wrong word or��sound alike� substitutions may have occurred due to the inherent limitations of voice recognition software.
Discharge Plan
Departure
Patient Disposition: Admit
Date of Disposition: 12/28/24
Time of Disposition: 17:55
Admit to: Med/Surg
Admit to doctor: Susannah
Presentation/result/management discussed w/ accepting MD/DO: Hospitalist
Patient with high blood pressure during this ER visit?: No
Condition: Good
Covid-19: Not Applicable
Discharge Problem:
Blood culture positive
Prescriptions:
No Action
aspirin 81 mg Tablet,Chewable
81 mg feeding tube DAILY
Eliquis 5 mg Tablet
5 mg feeding tube BID
lansoprazole 15 mg Tablet,Disintegrat, Delay Rel
15 mg feeding tube DAILY
olopatadine [Pataday Once Daily Relief] 0.2 % Drops
1 drp OPHTHALMIC (EYE) HS
hydrocortisone acetate 25 mg Suppository
25 mg OH HS Qty: 12 0RF
polyethylene glycol 3350 17 gram Powder In Packet
17 g feeding tube DAILY Qty: 30 0RF
amoxicillin-pot clavulanate 875-125 mg Tablet
1 tab feeding tube Q12 Qty: 14 0RF
Referrals:
Judith Garcia MD [Family Provider, Internal Medicine]
Interventions
Interventions:
*Risk Screen - Suicide Last Done: 12/28/24 15:54
*General Assessment Last Done: 12/28/24 15:54
*Neglect/Abuse Screening Last Done: 12/28/24 15:54
*ED COVID-19 Vaccine History Last Done: 12/28/24 15:54
Discharge Date and Time
Print Language: THAI
[2024-12-28] MEDS: ZOSYN 100 IV (17:59)
--- NOTE | 2024-12-28 18:32 | HPS.HSE ---
Addendum entered and electronically signed by Lucretia Davalos MD 12/28/24 20:18:
This is an addendum to H&P written by Anna Gates on 12/28/2024. 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
89-year-old female past medical history of recently migrated percutaneous endoscopic G-tube complicated by partial duodenal obstruction by balloon, PEG tube in 2022 complicated by fistula status post partial gastrectomy, GERD, hypertension,
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
Patient was recently admitted from 12/24 to 12/26 for nausea vomiting abdominal distention. �CT scan showed PEG tube migrated to the duodenum with duodenal obstruction PEG tube was adjusted. �She also had aspiration pneumonia from vomiting treated with
antibiotics. �Tube feeds were also changed from bolus to continuous.
Patient was found to have 1/2 blood culture showing gram-negative bacilli and told to come back to the hospital today.
Patient without any new symptoms. �No urinary symptoms. �She has chronic diarrhea at baseline. �No vomiting or fever.
Patient with 1 out of 2 blood culture positive for gram-negative bacilli. Rechecking blood cultures today. �Likely contaminant if blood cultures from today are negative as patient without any new symptoms or fever. �Empiric Zosyn for now as per ID
but can discontinue if repeat blood cultures negative.
Original Note:
Family Physician
-
Family Physician: Judith Garcia
Chief Complaint
-
Positive blood culture
History of Present Illness
89-year-old female from home with her daughter who was sent back for blood culture on 12/24/2024 showing gram negative bacilli. During that visit from 12/24 to 12/26/2024 she was treated for migration of her percutaneous endoscopic G-tube which was
repositioned in the ER and confirmed by imaging. She was also treated for aspiration pneumonia with Zosyn then to start 10-day course of Augmentin of which she has started 2 days. She is still having some diarrhea however is currently on Augmentin
this diarrhea has been ongoing and was the reason for G-tube replacement 2 weeks ago with balloon enlargement. Patient denies fever, chills, leakage around G-tube site, chest pain, palpitations, cough, abdominal pain, nausea, vomiting, urinary
symptoms. 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
Medical History
Past Medical History
Past Medical History: Reports Other
Additional Past Medical History:
CVA 2019 status post thrombectomy with dysphagia/dysarthria requiring PEG tube- chronic drooling left side of mouth
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
HTN
chronic bilateral leg lymphedema
chronic ambulatory dysfunction uses walker at baseline past 6 months
Past Surgical History: Reports Other
Additional Past Surgical History:
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
G-tube placement recent exchange November 2024
Initial G-tube 2019 replacement 2021
Bladder lift with ovarian removal
Social History
Tobacco: Non-smoker
Alcohol: None
Drug: None
Personal:
Living: Alone ([facility])
Employment: Retired
Family History
Family History: Not pertinent
Allergies / Home Medications
Allergies reflects when Allergies were last updated in [facility].
Home Medications with original date entered in [facility]
Allergy/Medication List:
Allergies
Allergy/AdvReac Type Severity Reaction Status Date / Time
atorvastatin (From Lipitor) Allergy diarrhea Verified 12/28/24 16:46
budesonide (From Symbicort) Allergy hoarse Verified 12/28/24 16:46
voice
formoterol (From Symbicort) Allergy hoarse Verified 12/28/24 16:46
voice
lisinopril Allergy COUGH Verified 12/28/24 16:46
losartan Allergy rapid HR Verified 12/28/24 16:46
rofecoxib (From Vioxx) Allergy Swelling Verified 12/28/24 16:46
rosuvastatin (From Crestor) Allergy DIARRHEA Verified 12/28/24 16:46
Home Medications
apixaban 5 mg tablet (Eliquis) 5 mg feeding tube BID Blood clot prevention/tx 03/31/22
aspirin 81 mg chewable tablet 81 mg feeding tube DAILY Blood clot prevention/tx 03/31/22
lansoprazole 15 mg delayed release,disintegrating tablet 15 mg feeding tube DAILY 12/24/24
olopatadine 0.2 % eye drops (Pataday Once Daily Relief) 1 drp ophthalmic (eye) DAILYPRN PRN itchy eyes 12/24/24
amoxicillin 875 mg-potassium clavulanate 125 mg tablet 1 tab feeding tube Q12 #14 tabs 12/26/24
peg 400-propylene glycol (PF) 0.4 %-0.3 % eye drops in a dropperette (Systane (PF)) 1 drp ophthalmic (eye) DAILYPRN PRN dry eyes 12/28/24
polyethylene glycol 3350 17 gram oral powder packet 17 g feeding tube DAILYPRN PRN constipation 12/28/24
Review of Systems
-
History Source: Patient and Family (Daughter at bedside)
A 12 point ROS was completed and negative except as noted: Yes
Constitutional: Denies Fever or Chills
EENT: Reports Other (Chronic nonverbal drools out left side of her mouth); Denies Sore Throat or Runny Nose
Respiratory: Denies Cough, Hemoptysis or Trouble Breathing
Cardiac: Denies Chest Pain, Diaphoresis, Palpitations or Syncope
Abdomen/GI: Reports Diarrhea (Mild) and Other (PEG tube present mild scant excoriation healing well with zinc oxide); Denies Abdominal Pain, Nausea, Vomiting, Constipated or Bloody Stools
: Denies Dysuria, Frequency, Flank Pain, Incontinence or Difficulty Voiding
Musculoskeletal: Denies Joint Pain or Edema
Skin: Denies Itching or Rash
Neurological: Denies Dizzy or Headache
Endocrine: Reports No Symptoms
Hematologic/Lymphatic: Reports No Symptoms
Psych: Reports Calm
Physical Exam
Vital Signs
Vital Signs
Temp Pulse Resp BP Pulse Ox
98.2 F 73 17 131/76 97
12/28/24 15:52 12/28/24 18:15 12/28/24 18:15 12/28/24 18:00 12/28/24 18:15
Physical Exam
General: No Pain, Fever or Chills
HEENT: NormoCephalic, Anicteric, Moist mucous membranes, [place] Conjunctivae, No Ptosis and Other (Chronic dysphagia/dysarthria, chronic drool left side mouth)
Respiratory: Clear; No Wheezes or Rales
Cardiac: S1/S2 and Regular Rhythm; No Murmur, Rub, Gallop or Peripheral Edema
Breast: Deferred by me
GI: Soft, Non Tender, Non Distended and Peg Tube (PEG tube present mild scant excoriation healing well with zinc oxide)
Rectal: Deferred by Provider
Genito-urinary: Deferred by me
Musculoskeletal: No Clubbing, No Cyanosis and No Edema
Skin: Warm, Dry and Rash
Neuro: AO x 3 (Nonverbal due to prior CVA, chronic drools out left side of her mouth) and No Sensory Deficits; No Slurred Speech, Tremors or Sedated
Psych: Calm
Laboratory Results
-
12/28/24 16:06
12/28/24 16:06
Laboratory Results
PT 16.8 Sec (11.4-14.6) H 12/28/24 16:06
INR 1.33 12/28/24 16:06
Lactic Acid Cancelled 12/28/24 20:00
Total Bilirubin 0.4 mg/dl (0.2-1.3) 12/28/24 16:06
AST 22 U/L (14-36) 12/28/24 16:06
ALT 21 U/L (0-35) 12/28/24 16:06
Alkaline Phosphatase 79 U/L (38-126) 12/28/24 16:06
Data Reviewed
-
Lab Data: Labs Reviewed by me
Impression/Plan
-
Impression/plan:
Admit to [facility]
#Reported positive blood cultures�gram-negative bacilli
Blood culture on 12/24/2024 showing gram-negative bacilli
Recent suspected aspiration pneumonia 12/24 - 12/26 was treated with IV Zosyn> Augmentin 10-day course via G-tube
WBC was 17.6 and 9.6 upon discharge currently WBC 6.9
- Repeat blood cultures x 2
- Will start Zosyn
#Recent migrated percutaneous endoscopic G-tube complicated with interstitial partially duodenal obstruction by balloon
#PEG tube was pulled back in ER by GI with confirmed placement by imaging
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
- Continue PPI
- Continue PEG tube feeds and PEG tube meds
Current tub feeds Nutren 2.0 tube feed regiment -- night feeds at 60ml x 8 hours with 50ml/flush per hour, then 2 feeds of 125ml with 50ml/hr over 1 hours each during then day. Will need additional 400ml free water with medications.
#History of constipation
May use MiraLAX as needed at home
History of external hemorrhoids
May use Anusol as needed
#Embolic CVA 2019 s/p thrombectomy with dysphagia/dysarthria
-May continue Eliquis 5 mg twice daily via G-tube ONCE placement confirmed
- MAY Continue aspirin 81 mg daily via G-tube ONCE placement confirmed
#Insomnia
May have melatonin liquid from home 20 mL at bedtime as needed
#Dry eye syndrome
Continue eyedrops
Seasonal allergies
Fexofenadine 180 mg 180 mg daily via G-tube at noon
DVT prophylaxis
- Continue Eliquis
DNR
[2024-12-28] MEDS: ELIQUIS 5 MG TUBE (22:33)
[2024-12-28] MEDS: ZOSYN 50 IV (23:28)
[2024-12-29] MEDS: REFRESH EYE DROPS (PF) 10 DROPS OPHTH (00:03)
[2024-12-29] MEDS: ZOSYN 50 IV ×4 (05:02→23:45)
[2024-12-29 08:02] LABS: ALT (SGPT) 17 U/L (0-35); AST (SGOT) 18 U/L (14-36); Albumin 2.9 g/dl (3.5-5.0); Alkaline Phosphatase 58 U/L (38-126); Blood Urea Nitrogen 16 mg/dl (7-17); Calcium 8.5 mg/dl (8.4-10.2); Carbon Dioxide 25 mmol/L (22-30); Chloride 111 mmol/L (98-107); Estimated Creatinine Clearance 45 ml/min; Glucose 114 mg/dl (70-99); Potassium 3.8 mmol/L (3.5-5.1); Sodium 139 mmol/L (135-145); Total Protein 5.8 g/dl (6.3-8.2); eGFR > 60.00
[2024-12-29 08:08] LABS: Hematocrit 34.8 % (37.0-47.0); Hemoglobin 11.8 g/dL (12.0-16.0); Mean Corp Hgb Conc. 33.9 g/dL (33.0-37.0); Mean Corpuscular Volume 93.8 fL (81.0-99.0); Nucleated Red Blood Cells % 0 %; Platelet Count 261 10^3/uL (130-400); Red Cell Dist. Width 14.0 % (11.5-14.5)
[2024-12-29 08:14] VITALS: BMI 23.8
[2024-12-29 08:27] VITALS: BP 116/72
[2024-12-29] MEDS: DESENEX/MITRAZOL/ZEASORB 1 APPLIC TOPICAL ×2 (08:29→20:58)
[2024-12-29] MEDS: LOW STRENGTH ASPIRIN 81 MG TUBE (08:30)
[2024-12-29] MEDS: PREVACID 15 MG TUBE (08:30)
[2024-12-29] MEDS: ELIQUIS 5 MG TUBE ×2 (08:30→20:58)
--- NOTE | 2024-12-29 09:21 | VNURNOTE ---
Chart reviewed. Patient is current with [facility]. Will continue to follow hospital course and DC plans.
--- NOTE | 2024-12-29 15:13 | W.PN.HOSP.TC ---
Today's Communication/Plan
-
See plan
Assessment / Plan
Assessment / Plan
Impression:
Readmitted with cultures reported with gram-negative bacteremia 1/2 from prior hospitalization
Migrated percutaneous endoscopic gastrostomy tube complicated with duodenal obstruction by balloon
Aspiration pneumonia secondary to emesis in the settings of intestinal obstruction
Other conditions
1. History of embolic cerebrovascular accident complicated with
dysphagia and dysarthria, chronic percutaneous endoscopic
gastrostomy tube.
2. Anticoagulation with Eliquis.
3. Gastroesophageal reflux disease.
4. Essential hypertension.
Plan
Reported blood culture preliminary GNB /2 bottles.
Patient was discharged on empiric antibiotics: Zosyn was transitioned to Augmentin covering aspiration pathogens.
Remains afebrile with stable respiratory status and normal WBC
Final and repeated blood cultures pending
Back empirically on Zosyn pending above
Continue PEG tube feeding
Stable neurologic status
Reinstated on Eliquis
PT assessment
Anticipated Discharge: 24 - 48 hours
Subjective/Interval History
-
Date of Service: December 29, 2024
Objective Data
-
Labs:
Laboratory Results
12/29/24
07:14
WBC 7.1
Hgb 11.8 L
Hct 34.8 L
Plt Count 261
Sodium 139
Potassium 3.8
Chloride 111 H
Carbon Dioxide 25
BUN 16
Creatinine 0.5 L
Glucose 114 H
Calcium 8.5
Total Bilirubin 0.4
AST 18
ALT 17
Alkaline Phosphatase 58
Vital Signs:
Vital Signs
Temp Pulse Resp BP Pulse Ox
98.7 F 77 18 116/72 97
12/29/24 08:27 12/29/24 08:27 12/29/24 08:27 12/29/24 08:27 12/29/24 08:27
I&O
12/28/24 12/29/24 12/30/24
06:59 06:59 06:59
Output Total 425 / 425
Balance -425 / -425
Physical Exam
-
General: Well Developed and No Apparent Distress
HEENT: Normocephalic, Atraumatic and Moist Mucous Membranes
Respiratory: Clear to Auscultation
Cardiac: Regular Rhythm and S1/S2; Negative Murmur, Rub or Gallop
GI: Soft, Nontender, Nondistended, Normal Bowel Sounds and Peg Tube; Negative Organomegaly
Rectal: Deferred by Provider
Musculoskeletal: No Clubbing, No Cyanosis and No Edema
Skin: Negative Rash
Neuro: Awake, Alert, Oriented and Other (Aphasic at baseline)
[2024-12-29 15:55] VITALS: BP 141/66
--- NOTE | 2024-12-29 16:27 | CM ---
Alert awake oriented patient with aphagia.She is independent living at [facility] . Her dgt Lynne lives with her to assist her . Dgt Margaret Cody dgt [phone] present in room .She uses walker. Peg tube for tube feedings.Resume [facility] Salas
liaison aware.Observation letter given explained . Pt declined to sign [facility] letter .
[facility] hx / [facility]
Pharmacy [facility] at
PCP DR Shields
PLAN Return to [facility] with [facility]
[2024-12-29] MEDS: FLUSH (NSS) 2 FLUSH IV (18:11)
--- NOTE | 2024-12-29 19:00 | PTCARENOTE ---
patient has not urinated today, bladder scan at 1300- 236ml- patient with no urgency to urinate. patient again bladder scanned at 1815- 499ml. patient assisted to [facility] but unable to urinate. patient catheterized without difficulty, with return of
550 ml of clear yellow urine. plan of care on going
[2024-12-29] MEDS: REFRESH EYE DROPS (PF) 1 DROPS OPHTH (20:58)
[2024-12-29 23:14] VITALS: BP 139/80
[2024-12-30] MEDS: ZOSYN 50 IV ×2 (05:12→12:01)
[2024-12-30 07:00] VITALS: BP 129/67
[2024-12-30] MEDS: DESENEX/MITRAZOL/ZEASORB 1 APPLIC TOPICAL (10:04)
[2024-12-30] MEDS: ELIQUIS 5 MG TUBE (10:05)
[2024-12-30] MEDS: PREVACID 15 MG TUBE (10:05)
[2024-12-30] MEDS: LOW STRENGTH ASPIRIN 81 MG TUBE (10:05)
[2024-12-30] MEDS: FLUSH (NSS) 2 FLUSH IV (12:01)
--- NOTE | 2024-12-30 12:01 | W.DS.TRANS ---
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
-
Discharge Instructions:
Sleep Apnea Risk Low
Discharge Diagnosis/Procedures Bacteremia
Diet Tube feeding
Instructions:
Stand-Alone Forms:
Changes to Home Medications: No
Discharge Medications:
DC Medications w/original date entered in [facility]
apixaban 5 mg tablet (Eliquis) 5 mg feeding tube BID Blood clot prevention/tx 03/31/22
aspirin 81 mg chewable tablet 81 mg feeding tube DAILY Blood clot prevention/tx 03/31/22
lansoprazole 15 mg delayed release,disintegrating tablet 15 mg feeding tube DAILY 12/24/24
olopatadine 0.2 % eye drops (Pataday Once Daily Relief) 1 drp ophthalmic (eye) DAILYPRN PRN itchy eyes 12/24/24
peg 400-propylene glycol (PF) 0.4 %-0.3 % eye drops in a dropperette (Systane (PF)) 1 drp ophthalmic (eye) DAILYPRN PRN dry eyes 12/28/24
polyethylene glycol 3350 17 gram oral powder packet 17 g feeding tube DAILYPRN PRN constipation 12/28/24
amoxicillin 875 mg-potassium clavulanate 125 mg tablet 1 tab feeding tube Q12 Infection 12/29/24
Home Medication Changes
Pending Results: No
--- NOTE | 2024-12-30 14:21 | CM ---
entered order for discharge.
Dana Lynne will drive her home today.
[facility] by [facility] .
Remains observation .
plan [facility]
[2024-12-30 15:00] VITALS: BP 136/67
== END 2024-12-30 16:15 | disposition home health service (06) ==
LOC: 4 EAST ACU 20:25
PROVIDERS: Clinical Nurse Specialist Family Health; Student in an Organized Health Care Education/Training Program; ADMITTING PHYSICIAN Hospitalist; ATTENDING PHYSICIAN Internal Medicine; EMERGENCY PHYSICIAN Emergency Medicine; FAMILY PHYSICIAN Internal Medicine Geriatric Medicine
DX: G47.00 Insomnia, unspecified (principal); H04.129 Dry eye syndrome of unspecified lacrimal gland; J30.2 Other seasonal allergic rhinitis; Z43.1 Encounter for attention to gastrostomy; R78.81 Bacteremia; B96.89 Other specified bacterial agents as the cause of diseases classified elsewhere; I69.320 Aphasia following cerebral infarction; I69.359 Hemiplegia and hemiparesis following cerebral infarction affecting unspecified side; I10 Essential (primary) hypertension; K21.9 Gastro-esophageal reflux disease without esophagitis; Z66 Do not resuscitate; Z79.01 Long term (current) use of anticoagulants
CPT/HCPCS: 80053; 83605; 85025; 85610; 87040; 96365; 97163; 97167; 99285; G0378